=== PATIENT | female | born 1960 | race Two or more races ===

== ENCOUNTER 2022-04-21 13:30 | Inpatient (IN) | payer MEDICARE ==
[~2022-04-21] VITALS: Ht 162.6 cm; Wt 71.6 kg
[2022-04-21] MEDS ORDERED: ALTEPLASE (RECOMBINANT) 100 MG ONE (13:38)
[2022-04-21] MEDS ORDERED: PROPOFOL 100 ML IV ONE (13:59)
[2022-04-21] MEDS ORDERED: PROPOFOL 100 ML IV SCH (14:00)
[2022-04-21] MEDS ORDERED: fentaNYL Drip 2500mCg/250mlNS 250 ML IV ONE (14:09)
[2022-04-21] MEDS: fentaNYL Drip 2500mCg/250mlNS 250 ML IV SCH (14:20)
[2022-04-21] MEDS ORDERED: IOHEXOL 350 MG/ML 100ML IJ ONE ×2 (14:47→18:40)
[2022-04-21 14:57] LABS: Basophils # (auto) 0.1 10 ^3/uL (0-0.2); Hemoglobin 13.1 g/dL (12.2-16.2); Neutrophils # (auto) 7.3 10 ^3/uL (1.6-8.6); Nucleated Red Blood Cells % 0.1 %
[2022-04-21 15:00] LABS: Basophils % (auto) 0.5 % (0.0-2.0); Eosinophils # (auto) 0.1 10 ^3/uL (0-0.8); Eosinophils % (auto) 0.8 % (0.0-7.0); Hematocrit 42.2 % (36.0-46.0); Lymphocytes # (auto) 7.2 10 ^3/uL (0.4-5.4); Lymphocytes % (auto) 46.1 % (10.0-50.0); Mean Corpuscular Volume 87.2 fL (80.0-100.0); Monocytes # (auto) 0.9 10 ^3/uL (0-1.3); Monocytes % (auto) 5.6 % (0.0-12.0); Red Blood Cells 4.84 10^6/uL (4.0-5.20); Red Cell Distribution Width 14.3 % (11.8-14.3); White Blood Cell 15.6 10^3/uL (4.4-10.8)
[2022-04-21 15:07] LABS: Lactic Acid w/Reflex 5.3 mmol/L (0.4-2.0)
[2022-04-21] MEDS ORDERED: SODIUM CHLORIDE 0.9% 250 ML IV ONE (15:40)
[2022-04-21] MEDS ORDERED: NOREPINEPHRINE 8 MG/250ML KIT 250 ML IV ONE (15:55)
[2022-04-21] MEDS: NOREPINEPHRINE 8 MG/250ML KIT 250 ML IV SCH (15:55)
[2022-04-21 16:28] LABS: BUN/Creatinine Ratio 29.2; Bilirubin, Total 0.3 mg/dL (0.2-1.0); Total Protein 4.7 g/dL (6.4-8.2)
[2022-04-21 16:48] LABS: Magnesium 2.8 mg/dL (1.6-2.6); Potassium 4.2 mmol/L (3.5-5.1)
[2022-04-21 17:01] LABS: INR 1.13 (0.9-1.15)
[2022-04-21 17:01] LABS: Calcium 9.7 mg/dL (8.5-10.1)
[2022-04-21 17:22] LABS: Urine WBC None Seen /hpf (0 - 5)
[2022-04-21 17:59] LABS: Urine Amorphous Crystal FEW /hpf (None Seen); Urine Bacteria NONE SEEN /hpf (None Seen); Urine Blood 2+ /uL (Negative); Urine Hyaline Cast MOD /lpf (0 - 2); Urine Mucus FEW (None Seen); Urine Specific Gravity 1.012 (1.001-1.035)
[2022-04-21 18:31] VITALS: BP 180/80
[2022-04-21 19:23] VITALS: BP 180/80
[2022-04-21] MEDS ORDERED: DEXTROSE (50%) 50ML SYRG IV PRN (21:00)
[2022-04-21] MEDS ORDERED: NITROGLYCERIN 0.4 MG SL TAB SL PRN (21:00)
[2022-04-21] MEDS ORDERED: ACETAMINOPHEN 325 MG RECT SUPP PR PRN (21:00)
[2022-04-21] MEDS ORDERED: VANCOMYCIN PER PHARMACY 0 MG IV SCH (21:00)
[2022-04-21] MEDS ORDERED: ONDANSETRON HCL 4 MG/2 ML VIAL IV PRN (21:00)
[2022-04-21] MEDS ORDERED: VANCOMYCIN 1GM/250ML 250 ML IV ONE (21:30)
[2022-04-21 21:48] VITALS: BP 120/60
[2022-04-21] MEDS: ENOXAPARIN SOD 40 MG/0.4 ML SYRINGE SC SCH (22:13)
[2022-04-21] MEDS: SODIUM CHLORIDE 0.9% 1,000 ML IV SCH (22:50)
[2022-04-21 23:30] VITALS: BP 178/93
[2022-04-21] MEDS: InsuLIN REG 1unit/0.01ml Soln (100units/ml) SC SCH (23:52)
[2022-04-22] VITALS (104 sets, daily range): BP systolic 53–184; BP diastolic 23–110
[2022-04-22] MEDS: ACCU-CHEK COMFORT CURVE STRIP VI SCH ×4 (00:02→17:56)
[2022-04-22] MEDS: PIPERACILLIN-TAZOB 3.375GM 100 ML IV SCH ×4 (00:19→17:56)
[2022-04-22 03:56] LABS: Albumin 2.8 g/dL (3.4-5.0); BUN/Creatinine Ratio 28.9; Calcium 9.5 mg/dL (8.5-10.1); Magnesium 2.4 mg/dL (1.6-2.6); Potassium 4.7 mmol/L (3.5-5.1)
[2022-04-22 03:59] LABS: Bilirubin, Total 0.6 mg/dL (0.2-1.0)
[2022-04-22 04:19] LABS: Basophils # (auto) 0.1 10 ^3/uL (0-0.2); Basophils % (auto) 0.6 % (0.0-2.0); Eosinophils # (auto) 0 10 ^3/uL (0-0.8); Eosinophils % (auto) 0.1 % (0.0-7.0); Hematocrit 40.8 % (36.0-46.0); Hemoglobin 13.4 g/dL (12.2-16.2); Lymphocytes # (auto) 2.8 10 ^3/uL (0.4-5.4); Lymphocytes % (auto) 12.8 % (10.0-50.0); Mean Corpuscular Hemoglobin 28.3 pg (28.0-32.0); Mean Corpuscular Hgb Conc. 32.9 g/dL (32.0-36.0); Mean Corpuscular Volume 85.9 fL (80.0-100.0); Monocytes # (auto) 1.6 10 ^3/uL (0-1.3); Monocytes % (auto) 7.5 % (0.0-12.0); Neutrophils # (auto) 17.1 10 ^3/uL (1.6-8.6); Nucleated Red Blood Cells % 0.1 %; Red Blood Cells 4.74 10^6/uL (4.0-5.20); Red Cell Distribution Width 14.3 % (11.8-14.3); White Blood Cell 21.7 10^3/uL (4.4-10.8)
[2022-04-22] MEDS: PROPOFOL 100 ML IV SCH ×2 (05:00→14:28)
[2022-04-22] MEDS: fentaNYL Drip 2500mCg/250mlNS 250 ML IV SCH ×2 (05:01→22:43)
[2022-04-22] MEDS: InsuLIN REG 1unit/0.01ml Soln (100units/ml) SC SCH ×3 (05:51→17:56)
[2022-04-22] MEDS: VANCOMYCIN 1GM/250ML 250 ML IV SCH ×2 (09:18→09:20)
[2022-04-22] MEDS: PANTOPRAZOLE 40 MG/10 ML VIAL INJ IV SCH (10:27)
[2022-04-22] MEDS: ENOXAPARIN SOD 40 MG/0.4 ML SYRINGE SC SCH (10:28)
[2022-04-22] MEDS: SODIUM CHLORIDE 0.9% 1,000 ML IV SCH (10:35)
[2022-04-22] MEDS: NOREPINEPHRINE 8 MG/250ML KIT 250 ML IV SCH (16:00)
[2022-04-22] MEDS ORDERED: Glucerna 1.2 Cal 1Liter BOTTLE GT SCH (16:15)
[2022-04-22] MEDS ORDERED: NOREPINEPHRINE 8 MG/250ML KIT 250 ML IV ONE (22:40)
[2022-04-23] VITALS (85 sets, daily range): BP systolic 107–169; BP diastolic 55–93
[2022-04-23] MEDS: PIPERACILLIN-TAZOB 3.375GM 100 ML IV SCH ×4 (00:54→17:37)
[2022-04-23 03:03] LABS: Basophils # (auto) 0.1 10 ^3/uL (0-0.2); Basophils % (auto) 0.5 % (0.0-2.0); Eosinophils # (auto) 0.4 10 ^3/uL (0-0.8); Eosinophils % (auto) 1.6 % (0.0-7.0); Hematocrit 43.4 % (36.0-46.0); Hemoglobin 14.1 g/dL (12.2-16.2); Lymphocytes # (auto) 2.7 10 ^3/uL (0.4-5.4); Lymphocytes % (auto) 12.3 % (10.0-50.0); Mean Corpuscular Hemoglobin 27.5 pg (28.0-32.0); Mean Corpuscular Hgb Conc. 32.4 g/dL (32.0-36.0); Mean Corpuscular Volume 84.9 fL (80.0-100.0); Monocytes # (auto) 2.7 10 ^3/uL (0-1.3); Monocytes % (auto) 12.3 % (0.0-12.0); Neutrophils # (auto) 16.2 10 ^3/uL (1.6-8.6); Neutrophils % (auto) 73.3 % (37.0-80.0); Nucleated Red Blood Cells % 0.1 %; Red Blood Cells 5.12 10^6/uL (4.0-5.20); Red Cell Distribution Width 14.5 % (11.8-14.3); White Blood Cell 22.1 10^3/uL (4.4-10.8)
[2022-04-23] MEDS: NOREPINEPHRINE 8 MG/250ML KIT 250 ML IV SCH (03:53)
[2022-04-23 05:09] LABS: Albumin 2.4 g/dL (3.4-5.0); BUN/Creatinine Ratio 29.1; Calcium 9.3 mg/dL (8.5-10.1)
[2022-04-23 05:11] LABS: Bilirubin, Total 3.6 mg/dL (0.2-1.0); Total Protein 5.8 g/dL (6.4-8.2)
[2022-04-23] MEDS: ACCU-CHEK COMFORT CURVE STRIP VI SCH ×4 (06:00→17:38)
[2022-04-23] MEDS: InsuLIN REG 1unit/0.01ml Soln (100units/ml) SC SCH ×4 (06:00→18:00)
[2022-04-23] MEDS: PROPOFOL 100 ML IV SCH (06:04)
[2022-04-23] MEDS ORDERED: RILU50TA2 OR (09:05)
[2022-04-23] MEDS ORDERED: DEXT20CA PO (09:05)
[2022-04-23] MEDS: SERTRALINE HCL 50 MG TAB PO SCH (10:06)
[2022-04-23] MEDS: PANTOPRAZOLE 40 MG/10 ML VIAL INJ IV SCH (10:06)
[2022-04-23] MEDS: NUEDEXTA 20-10 MG CAPSULE PO SCH ×2 (10:06→22:00)
[2022-04-23] MEDS: RILUZOLE 50 MG PO SCH (10:06)
[2022-04-23] MEDS: ENOXAPARIN SOD 40 MG/0.4 ML SYRINGE SC SCH (10:26)
[2022-04-23] MEDS ORDERED: LORazepam 2MG/ML-1ML VIAL IV PRN (14:15)
[2022-04-23] MEDS: FREE WATER GT SCH (17:37)
[2022-04-24] VITALS (36 sets, daily range): BP systolic 115–155; BP diastolic 66–86
[2022-04-24] MEDS: RILUZOLE 50 MG PO SCH ×3 (00:16→21:38)
[2022-04-24] MEDS: FREE WATER GT SCH ×5 (00:16→23:51)
[2022-04-24] MEDS: ACCU-CHEK COMFORT CURVE STRIP VI SCH ×5 (00:16→23:52)
[2022-04-24] MEDS: PIPERACILLIN-TAZOB 3.375GM 100 ML IV SCH ×5 (00:19→23:51)
[2022-04-24 03:26] LABS: Basophils # (auto) 0.1 10 ^3/uL (0-0.2); Basophils % (auto) 0.4 % (0.0-2.0); Eosinophils # (auto) 0.1 10 ^3/uL (0-0.8); Eosinophils % (auto) 0.5 % (0.0-7.0); Hemoglobin 12.2 g/dL (12.2-16.2); Lymphocytes # (auto) 1.6 10 ^3/uL (0.4-5.4); Lymphocytes % (auto) 13.1 % (10.0-50.0); Mean Corpuscular Hgb Conc. 32.1 g/dL (32.0-36.0); Monocytes # (auto) 1.2 10 ^3/uL (0-1.3); Monocytes % (auto) 9.8 % (0.0-12.0); Neutrophils # (auto) 9.3 10 ^3/uL (1.6-8.6); Neutrophils % (auto) 76.2 % (37.0-80.0); Nucleated Red Blood Cells % 0.1 %; Red Blood Cells 4.37 10^6/uL (4.0-5.20); White Blood Cell 12.2 10^3/uL (4.4-10.8)
[2022-04-24 03:41] LABS: Albumin 2.2 g/dL (3.4-5.0); BUN/Creatinine Ratio 43.3; Calcium 8.5 mg/dL (8.5-10.1); Potassium 3.5 mmol/L (3.5-5.1)
[2022-04-24 03:44] LABS: Bilirubin, Total 2.7 mg/dL (0.2-1.0); Total Protein 5.7 g/dL (6.4-8.2)
[2022-04-24] MEDS: InsuLIN REG 1unit/0.01ml Soln (100units/ml) SC SCH ×5 (06:00→23:54)
[2022-04-24] MEDS: NUEDEXTA 20-10 MG CAPSULE PO SCH ×2 (09:40→21:38)
[2022-04-24] MEDS: ENOXAPARIN SOD 40 MG/0.4 ML SYRINGE SC SCH (09:40)
[2022-04-24] MEDS: PANTOPRAZOLE 40 MG/10 ML VIAL INJ IV SCH (09:40)
[2022-04-24] MEDS: SERTRALINE HCL 50 MG TAB PO SCH (09:41)
[2022-04-24] MEDS: fentaNYL Drip 2500mCg/250mlNS 250 ML IV SCH (15:45)
[2022-04-24] MEDS: NOREPINEPHRINE 8 MG/250ML KIT 250 ML IV SCH (16:00)
[2022-04-24] MEDS: PROPOFOL 100 ML IV SCH (23:19)
[2022-04-25] VITALS (37 sets, daily range): BP systolic 100–166; BP diastolic 65–88
[2022-04-25 03:31] LABS: Basophils # (auto) 0.1 10 ^3/uL (0-0.2); Basophils % (auto) 0.5 % (0.0-2.0); Eosinophils # (auto) 0.1 10 ^3/uL (0-0.8); Eosinophils % (auto) 0.9 % (0.0-7.0); Hematocrit 35.7 % (36.0-46.0); Hemoglobin 11.6 g/dL (12.2-16.2); Lymphocytes # (auto) 1.1 10 ^3/uL (0.4-5.4); Lymphocytes % (auto) 10.6 % (10.0-50.0); Mean Corpuscular Hemoglobin 27.5 pg (28.0-32.0); Mean Corpuscular Hgb Conc. 32.4 g/dL (32.0-36.0); Mean Corpuscular Volume 84.9 fL (80.0-100.0); Monocytes % (auto) 9.4 % (0.0-12.0); Neutrophils # (auto) 8.4 10 ^3/uL (1.6-8.6); Neutrophils % (auto) 78.6 % (37.0-80.0); Nucleated Red Blood Cells % 0.1 %; Red Cell Distribution Width 14.4 % (11.8-14.3); White Blood Cell 10.7 10^3/uL (4.4-10.8)
[2022-04-25 03:48] LABS: Albumin 2.1 g/dL (3.4-5.0); BUN/Creatinine Ratio 55.6; Bilirubin, Total 2.1 mg/dL (0.2-1.0); Calcium 8.5 mg/dL (8.5-10.1); Total Protein 5.7 g/dL (6.4-8.2)
[2022-04-25] MEDS: ACCU-CHEK COMFORT CURVE STRIP VI SCH ×3 (05:43→18:00)
[2022-04-25] MEDS: PIPERACILLIN-TAZOB 3.375GM 100 ML IV SCH ×3 (05:43→17:56)
[2022-04-25] MEDS: FREE WATER GT SCH (05:43)
[2022-04-25] MEDS: InsuLIN REG 1unit/0.01ml Soln (100units/ml) SC SCH ×3 (05:45→18:00)
[2022-04-25] MEDS ORDERED: POTASSIUM EFFERVESENT TAB 25 MEQ GT ONE (08:15)
[2022-04-25] MEDS: SERTRALINE HCL 50 MG TAB PO SCH (10:07)
[2022-04-25] MEDS: PANTOPRAZOLE 40 MG/10 ML VIAL INJ IV SCH (10:07)
[2022-04-25] MEDS: ENOXAPARIN SOD 40 MG/0.4 ML SYRINGE SC SCH (10:07)
[2022-04-25] MEDS: NUEDEXTA 20-10 MG CAPSULE PO SCH ×2 (10:08→22:05)
[2022-04-25] MEDS: NOREPINEPHRINE 8 MG/250ML KIT 250 ML IV SCH (10:09)
[2022-04-25] MEDS: RILUZOLE 50 MG PO SCH ×2 (10:09→22:05)
[2022-04-25] MEDS: fentaNYL Drip 2500mCg/250mlNS 250 ML IV SCH (10:09)
[2022-04-25] MEDS: PROPOFOL 100 ML IV SCH (22:35)
[2022-04-26] VITALS (56 sets, daily range): BP systolic 92–145; BP diastolic 50–91
[2022-04-26] MEDS: ACCU-CHEK COMFORT CURVE STRIP VI SCH ×5 (00:16→23:38)
[2022-04-26] MEDS: PIPERACILLIN-TAZOB 3.375GM 100 ML IV SCH ×5 (00:16→23:53)
[2022-04-26] MEDS: InsuLIN REG 1unit/0.01ml Soln (100units/ml) SC SCH ×5 (00:18→23:53)
[2022-04-26 03:43] LABS: Basophils # (auto) 0 10 ^3/uL (0-0.2); Basophils % (auto) 0.3 % (0.0-2.0); Eosinophils # (auto) 0.1 10 ^3/uL (0-0.8); Eosinophils % (auto) 0.9 % (0.0-7.0); Hemoglobin 11.7 g/dL (12.2-16.2); Lymphocytes # (auto) 1.5 10 ^3/uL (0.4-5.4); Lymphocytes % (auto) 15.4 % (10.0-50.0); Mean Corpuscular Hemoglobin 27.6 pg (28.0-32.0); Mean Corpuscular Hgb Conc. 32.4 g/dL (32.0-36.0); Mean Corpuscular Volume 85.2 fL (80.0-100.0); Monocytes % (auto) 9.7 % (0.0-12.0); Neutrophils # (auto) 7.2 10 ^3/uL (1.6-8.6); Neutrophils % (auto) 73.7 % (37.0-80.0); Nucleated Red Blood Cells % 0.1 %; Red Blood Cells 4.22 10^6/uL (4.0-5.20); Red Cell Distribution Width 14.3 % (11.8-14.3); White Blood Cell 9.8 10^3/uL (4.4-10.8)
[2022-04-26 04:03] LABS: Potassium 3.3 mmol/L (3.5-5.1)
[2022-04-26 04:10] LABS: Albumin 2.1 g/dL (3.4-5.0); BUN/Creatinine Ratio 27.5; Bilirubin, Total 1.5 mg/dL (0.2-1.0); Calcium 8.5 mg/dL (8.5-10.1); Total Protein 5.7 g/dL (6.4-8.2)
[2022-04-26] MEDS: ENOXAPARIN SOD 40 MG/0.4 ML SYRINGE SC SCH (09:16)
[2022-04-26] MEDS: PANTOPRAZOLE 40 MG/10 ML VIAL INJ IV SCH (09:16)
[2022-04-26] MEDS: SERTRALINE HCL 50 MG TAB PO SCH (09:17)
[2022-04-26] MEDS: RILUZOLE 50 MG PO SCH ×2 (09:17→21:40)
[2022-04-26] MEDS: NUEDEXTA 20-10 MG CAPSULE PO SCH ×2 (09:18→21:40)
[2022-04-26] MEDS ORDERED: ALBUTEROL SULF 2.5 MG/0.5ML(0.5%) NEB SOLN ONE (10:58)
[2022-04-26] MEDS ORDERED: IPRATROPIUM BROM 0.5 MG/2.5ML INH SOL ONE (10:59)
[2022-04-26] MEDS: ALBUTEROL SULF 2.5 MG/0.5ML(0.5%) NEB SOLN NEB SCH ×3 (11:09→18:40)
[2022-04-26] MEDS: IPRATROPIUM BROM 0.5 MG/2.5ML INH SOL NEB SCH ×3 (11:10→18:40)
[2022-04-26] MEDS ORDERED: GLYCOPYRROLATE 0.2 MG/ML 1ML VIAL ONE (14:25)
[2022-04-26] MEDS ORDERED: SODIUM CHLORIDE LOCK 0 ML ONE (14:25)
[2022-04-26] MEDS ORDERED: EPINEPHrine HCL 1 MG/1 ML AMP ONE (14:25)
[2022-04-26] MEDS ORDERED: LIDOCAINE HCL 2% TOP JELLY 5ML TOP ONE (14:26)
[2022-04-26] MEDS ORDERED: fentaNYL CITRATE 100 MCG/2 ML VL ONE (14:26)
[2022-04-26] MEDS ORDERED: MIDAZOLAM HCL 5 MG/ML-1ML VIAL ONE (14:26)
[2022-04-26] MEDS ORDERED: LIDOCAINE W/ EPINEPHRINE 2% INJ 20ML VIAL ONE (14:26)
[2022-04-26] MEDS ORDERED: NALOXONE HCL 0.4 MG/ML VIAL ONE (14:27)
[2022-04-26] MEDS ORDERED: LIDOCAINE 2% (LOCAL ANESTH.) PF 5ml SDV ONE (14:28)
[2022-04-26] MEDS ORDERED: FLUMAZENIL 0.1 MG/ML INJ 10ML MDV IV ONE (14:28)
[2022-04-26] MEDS ORDERED: EPINEPHrine HCL 1 MG/10 ML SYRG ONE (14:28)
[2022-04-26] MEDS: fentaNYL Drip 2500mCg/250mlNS 250 ML IV SCH (15:45)
[2022-04-26] MEDS: SOD CHL 0.9%/ KCL 20MEQ 1,000 ML IV SCH (15:53)
[2022-04-26] MEDS: NOREPINEPHRINE 8 MG/250ML KIT 250 ML IV SCH (16:00)
[2022-04-26] MEDS: PROPOFOL 100 ML IV SCH (22:35)
[2022-04-27] VITALS (104 sets, daily range): BP systolic 91–202; BP diastolic 51–100
[2022-04-27] MEDS: IPRATROPIUM BROM 0.5 MG/2.5ML INH SOL NEB SCH ×4 (00:28→18:14)
[2022-04-27] MEDS: ALBUTEROL SULF 2.5 MG/0.5ML(0.5%) NEB SOLN NEB SCH ×4 (00:28→18:14)
[2022-04-27 04:30] LABS: Basophils # (auto) 0 10 ^3/uL (0-0.2); Basophils % (auto) 0.5 % (0.0-2.0); Eosinophils # (auto) 0.1 10 ^3/uL (0-0.8); Eosinophils % (auto) 0.7 % (0.0-7.0); Hematocrit 30.8 % (36.0-46.0); Lymphocytes # (auto) 1.7 10 ^3/uL (0.4-5.4); Lymphocytes % (auto) 20.9 % (10.0-50.0); Mean Corpuscular Hemoglobin 27.9 pg (28.0-32.0); Mean Corpuscular Hgb Conc. 32.4 g/dL (32.0-36.0); Mean Corpuscular Volume 86.2 fL (80.0-100.0); Monocytes # (auto) 0.7 10 ^3/uL (0-1.3); Monocytes % (auto) 7.9 % (0.0-12.0); Neutrophils # (auto) 5.9 10 ^3/uL (1.6-8.6); Red Blood Cells 3.58 10^6/uL (4.0-5.20); Red Cell Distribution Width 14.2 % (11.8-14.3); White Blood Cell 8.4 10^3/uL (4.4-10.8)
[2022-04-27] MEDS: SOD CHL 0.9%/ KCL 20MEQ 1,000 ML IV SCH (04:32)
[2022-04-27 04:48] LABS: BUN/Creatinine Ratio 30.6; Calcium 8.1 mg/dL (8.5-10.1); Potassium 3.1 mmol/L (3.5-5.1)
[2022-04-27] MEDS: InsuLIN REG 1unit/0.01ml Soln (100units/ml) SC SCH ×4 (06:00→23:48)
[2022-04-27] MEDS: PIPERACILLIN-TAZOB 3.375GM 100 ML IV SCH ×4 (06:03→23:51)
[2022-04-27] MEDS: ACCU-CHEK COMFORT CURVE STRIP VI SCH ×4 (06:04→23:48)
[2022-04-27] MEDS: PANTOPRAZOLE 40 MG/10 ML VIAL INJ IV SCH (09:54)
[2022-04-27] MEDS: ENOXAPARIN SOD 40 MG/0.4 ML SYRINGE SC SCH (09:54)
[2022-04-27] MEDS: SERTRALINE HCL 50 MG TAB PO SCH (09:55)
[2022-04-27] MEDS: RILUZOLE 50 MG PO SCH ×2 (09:57→21:53)
[2022-04-27] MEDS: NUEDEXTA 20-10 MG CAPSULE PO SCH ×2 (09:57→21:53)
[2022-04-27] MEDS ORDERED: FUROSEMIDE 20 MG/2 ML VIAL IV ONE ×2 (11:00→15:00)
[2022-04-27] MEDS ORDERED: POTASSIUM EFFERVESENT TAB 25 MEQ PO ONE (11:00)
[2022-04-27] MEDS ORDERED: POTASSIUM CHL 20MEQ/100ML 100 ML IV ONE (15:00)
[2022-04-27] MEDS: fentaNYL Drip 2500mCg/250mlNS 250 ML IV SCH (15:45)
[2022-04-27] MEDS: NOREPINEPHRINE 8 MG/250ML KIT 250 ML IV SCH (16:00)
[2022-04-27] MEDS ORDERED: ACETYLCYSTEINE 10 %(100MG/ML) SOL 4ML NEB SCH (18:00)
[2022-04-27] MEDS: ACETYLCYSTEINE 10 %(100MG/ML) SOL 4ML NEB SCH (18:13)
[2022-04-27] MEDS: Vital AF 1.2 Cal 1 liter bottle GT SCH (23:49)
[2022-04-28] VITALS (104 sets, daily range): BP systolic 107–150; BP diastolic 46–80
[2022-04-28] MEDS: ACETYLCYSTEINE 10 %(100MG/ML) SOL 4ML NEB SCH ×3 (00:08→18:55)
[2022-04-28] MEDS: ALBUTEROL SULF 2.5 MG/0.5ML(0.5%) NEB SOLN NEB SCH ×4 (00:08→18:54)
[2022-04-28] MEDS: IPRATROPIUM BROM 0.5 MG/2.5ML INH SOL NEB SCH ×4 (00:08→18:55)
[2022-04-28] MEDS ORDERED: DexmedeTOMIDine 4 ML IV ONE (04:08)
[2022-04-28 04:14] LABS: Basophils # (auto) 0 10 ^3/uL (0-0.2); Basophils % (auto) 0.5 % (0.0-2.0); Eosinophils # (auto) 0.2 10 ^3/uL (0-0.8); Eosinophils % (auto) 2.2 % (0.0-7.0); Hematocrit 29.7 % (36.0-46.0); Lymphocytes # (auto) 2.1 10 ^3/uL (0.4-5.4); Mean Corpuscular Hemoglobin 28.2 pg (28.0-32.0); Mean Corpuscular Hgb Conc. 33.6 g/dL (32.0-36.0); Monocytes # (auto) 0.6 10 ^3/uL (0-1.3); Monocytes % (auto) 7.5 % (0.0-12.0); Neutrophils # (auto) 5.1 10 ^3/uL (1.6-8.6); Neutrophils % (auto) 63.8 % (37.0-80.0); Nucleated Red Blood Cells % 0.1 %; Red Blood Cells 3.53 10^6/uL (4.0-5.20); Red Cell Distribution Width 14.1 % (11.8-14.3)
[2022-04-28 04:35] LABS: Potassium 3.3 mmol/L (3.5-5.1)
[2022-04-28 04:39] LABS: BUN/Creatinine Ratio 25.6; Calcium 8.2 mg/dL (8.5-10.1)
[2022-04-28] MEDS: InsuLIN REG 1unit/0.01ml Soln (100units/ml) SC SCH ×3 (06:00→18:30)
[2022-04-28] MEDS: PIPERACILLIN-TAZOB 3.375GM 100 ML IV SCH ×3 (06:20→18:27)
[2022-04-28] MEDS: ACCU-CHEK COMFORT CURVE STRIP VI SCH ×3 (06:21→18:27)
[2022-04-28] MEDS: PROPOFOL 100 ML IV SCH (08:07)
[2022-04-28] MEDS: SERTRALINE HCL 50 MG TAB PO SCH (11:11)
[2022-04-28] MEDS: ENOXAPARIN SOD 40 MG/0.4 ML SYRINGE SC SCH (11:11)
[2022-04-28] MEDS: PANTOPRAZOLE 40 MG/10 ML VIAL INJ IV SCH (11:11)
[2022-04-28] MEDS: NUEDEXTA 20-10 MG CAPSULE PO SCH ×2 (11:30→22:30)
[2022-04-28] MEDS: RILUZOLE 50 MG PO SCH ×2 (11:30→23:00)
[2022-04-28] MEDS ORDERED: POTASSIUM EFFERVESENT TAB 25 MEQ GT ONE (13:15)
[2022-04-28] MEDS: MORPHINE SULFATE INJ 2 MG/ml SYRG IV PRN ×3 (14:00→22:15)
[2022-04-28] MEDS: fentaNYL Drip 2500mCg/250mlNS 250 ML IV SCH (15:04)
[2022-04-28] MEDS: NOREPINEPHRINE 8 MG/250ML KIT 250 ML IV SCH (15:04)
[2022-04-29] VITALS (95 sets, daily range): BP systolic 109–174; BP diastolic 45–69
[2022-04-29] MEDS: PIPERACILLIN-TAZOB 3.375GM 100 ML IV SCH ×4 (00:05→18:45)
[2022-04-29] MEDS: ACETYLCYSTEINE 10 %(100MG/ML) SOL 4ML NEB SCH ×4 (00:09→18:26)
[2022-04-29] MEDS: IPRATROPIUM BROM 0.5 MG/2.5ML INH SOL NEB SCH ×4 (00:09→18:26)
[2022-04-29] MEDS: ALBUTEROL SULF 2.5 MG/0.5ML(0.5%) NEB SOLN NEB SCH ×4 (00:09→18:26)
[2022-04-29] MEDS: ACCU-CHEK COMFORT CURVE STRIP VI SCH ×4 (00:12→18:55)
[2022-04-29] MEDS: MORPHINE SULFATE INJ 2 MG/ml SYRG IV PRN ×3 (02:42→20:25)
[2022-04-29 04:22] LABS: Calcium 8.4 mg/dL (8.5-10.1); Potassium 3.6 mmol/L (3.5-5.1)
[2022-04-29 04:26] LABS: BUN/Creatinine Ratio 29.4; Magnesium 1.4 mg/dL (1.6-2.6)
[2022-04-29] MEDS: InsuLIN REG 1unit/0.01ml Soln (100units/ml) SC SCH ×4 (06:00→18:55)
[2022-04-29] MEDS ORDERED: MAGNESIUM SULFATE 1GM/100ML 100 ML IV ONE (09:38)
[2022-04-29] MEDS: MAGNESIUM SULFATE 1GM/100ML 100 ML IV SCH ×2 (09:45→10:45)
[2022-04-29] MEDS: PROPOFOL 100 ML IV SCH ×2 (09:54→22:35)
[2022-04-29] MEDS: SERTRALINE HCL 50 MG TAB PO SCH (10:00)
[2022-04-29] MEDS: NUEDEXTA 20-10 MG CAPSULE PO SCH ×2 (10:00→22:12)
[2022-04-29] MEDS: ENOXAPARIN SOD 40 MG/0.4 ML SYRINGE SC SCH (10:00)
[2022-04-29] MEDS ORDERED: LIDOCAINE 1%-Mpf/Epinephrine 1:200,000 ONE (10:55)
[2022-04-29] MEDS ORDERED: HYDROmorphone HCL 2 MG/ML VL/or syr ONE (12:42)
[2022-04-29] MEDS ORDERED: MIDAZOLAM HCL 2MG/2ML 2ml VIAL (1mg/ml) ONE (12:43)
[2022-04-29] MEDS ORDERED: fentaNYL CITRATE 100 MCG/2 ML VL ONE (12:43)
[2022-04-29] MEDS ORDERED: DexAMETHasone SOD PHOS 10MG/1ML VIAL INJ ONE (13:24)
[2022-04-29] MEDS: PANTOPRAZOLE 40 MG/10 ML VIAL INJ IV SCH (14:55)
[2022-04-29] MEDS: RILUZOLE 50 MG PO SCH ×2 (14:55→22:13)
[2022-04-29] MEDS: NOREPINEPHRINE 8 MG/250ML KIT 250 ML IV SCH (15:33)
[2022-04-29] MEDS: fentaNYL Drip 2500mCg/250mlNS 250 ML IV SCH (15:33)
[2022-04-30] VITALS (98 sets, daily range): BP systolic 96–182; BP diastolic 44–93
[2022-04-30] MEDS: IPRATROPIUM BROM 0.5 MG/2.5ML INH SOL NEB SCH ×4 (00:12→18:18)
[2022-04-30] MEDS: ACETYLCYSTEINE 10 %(100MG/ML) SOL 4ML NEB SCH ×4 (00:12→18:18)
[2022-04-30] MEDS: ALBUTEROL SULF 2.5 MG/0.5ML(0.5%) NEB SOLN NEB SCH ×4 (00:12→18:18)
[2022-04-30] MEDS: PIPERACILLIN-TAZOB 3.375GM 100 ML IV SCH ×3 (00:15→11:42)
[2022-04-30] MEDS: fentaNYL Drip 2500mCg/250mlNS 250 ML IV SCH (00:36)
[2022-04-30 04:01] LABS: Basophils # (auto) 0 10 ^3/uL (0-0.2); Basophils % (auto) 0.2 % (0.0-2.0); Eosinophils # (auto) 0.1 10 ^3/uL (0-0.8); Eosinophils % (auto) 0.7 % (0.0-7.0); Hematocrit 31.5 % (36.0-46.0); Hemoglobin 10.2 g/dL (12.2-16.2); Lymphocytes # (auto) 0.9 10 ^3/uL (0.4-5.4); Lymphocytes % (auto) 9.5 % (10.0-50.0); Mean Corpuscular Hemoglobin 27.9 pg (28.0-32.0); Mean Corpuscular Hgb Conc. 32.5 g/dL (32.0-36.0); Mean Corpuscular Volume 85.8 fL (80.0-100.0); Monocytes # (auto) 0.6 10 ^3/uL (0-1.3); Monocytes % (auto) 5.9 % (0.0-12.0); Neutrophils # (auto) 8.1 10 ^3/uL (1.6-8.6); Neutrophils % (auto) 83.7 % (37.0-80.0); Red Blood Cells 3.67 10^6/uL (4.0-5.20); Red Cell Distribution Width 14.2 % (11.8-14.3); White Blood Cell 9.7 10^3/uL (4.4-10.8)
[2022-04-30 04:23] LABS: BUN/Creatinine Ratio 25.8; Calcium 8.4 mg/dL (8.5-10.1); Potassium 3.7 mmol/L (3.5-5.1)
[2022-04-30] MEDS: ACCU-CHEK COMFORT CURVE STRIP VI SCH ×4 (06:01→18:17)
[2022-04-30] MEDS: InsuLIN REG 1unit/0.01ml Soln (100units/ml) SC SCH ×4 (06:12→18:18)
[2022-04-30] MEDS: ENOXAPARIN SOD 40 MG/0.4 ML SYRINGE SC SCH (09:39)
[2022-04-30] MEDS: SERTRALINE HCL 50 MG TAB PO SCH (09:39)
[2022-04-30] MEDS: PANTOPRAZOLE 40 MG/10 ML VIAL INJ IV SCH (09:39)
[2022-04-30] MEDS: NUEDEXTA 20-10 MG CAPSULE PO SCH ×2 (09:40→22:26)
[2022-04-30] MEDS: RILUZOLE 50 MG PO SCH ×2 (09:40→22:26)
[2022-04-30] MEDS: ALPRAZolam 0.25 MG TAB PO PRN (15:16)
[2022-04-30] MEDS: NOREPINEPHRINE 8 MG/250ML KIT 250 ML IV SCH (16:00)
[2022-04-30] MEDS: levoFLOXacin 500MG 100 ML IV SCH (17:02)
[2022-04-30] MEDS: FREE WATER GT SCH (18:19)
[2022-04-30] MEDS: MORPHINE SULFATE INJ 2 MG/ml SYRG IV PRN (21:40)
[2022-04-30] MEDS ORDERED: ONDANSETRON HCL 4 MG/2 ML VIAL ONE (21:54)
[2022-04-30] MEDS: ONDANSETRON HCL 4 MG/2 ML VIAL IV PRN (23:30)
[2022-05-01] VITALS (104 sets, daily range): BP systolic 101–227; BP diastolic 51–115
[2022-05-01] MEDS: ALBUTEROL SULF 2.5 MG/0.5ML(0.5%) NEB SOLN NEB SCH ×6 (00:18→22:11)
[2022-05-01] MEDS: ACETYLCYSTEINE 10 %(100MG/ML) SOL 4ML NEB SCH ×5 (00:18→22:11)
[2022-05-01] MEDS: IPRATROPIUM BROM 0.5 MG/2.5ML INH SOL NEB SCH ×6 (00:18→22:11)
[2022-05-01] MEDS ORDERED: PROMETHAZINE HCL 25 MG/ML 1ML ONE (00:53)
[2022-05-01] MEDS: ALPRAZolam 0.25 MG TAB PO PRN ×3 (01:09→23:00)
[2022-05-01 04:23] LABS: Basophils # (auto) 0.1 10 ^3/uL (0-0.2); Basophils % (auto) 0.4 % (0.0-2.0); Eosinophils # (auto) 0.1 10 ^3/uL (0-0.8); Eosinophils % (auto) 0.5 % (0.0-7.0); Hemoglobin 10.9 g/dL (12.2-16.2); Lymphocytes # (auto) 1.3 10 ^3/uL (0.4-5.4); Lymphocytes % (auto) 8.4 % (10.0-50.0); Mean Corpuscular Hemoglobin 28.2 pg (28.0-32.0); Mean Corpuscular Hgb Conc. 33.1 g/dL (32.0-36.0); Mean Corpuscular Volume 85.1 fL (80.0-100.0); Monocytes # (auto) 0.7 10 ^3/uL (0-1.3); Monocytes % (auto) 4.7 % (0.0-12.0); Neutrophils # (auto) 13.3 10 ^3/uL (1.6-8.6); Red Blood Cells 3.88 10^6/uL (4.0-5.20); Red Cell Distribution Width 14.6 % (11.8-14.3); White Blood Cell 15.5 10^3/uL (4.4-10.8)
[2022-05-01] MEDS: ONDANSETRON HCL 4 MG/2 ML VIAL IV PRN (04:25)
[2022-05-01 04:34] LABS: Albumin 2.3 g/dL (3.4-5.0); BUN/Creatinine Ratio 17.1; Calcium 8.4 mg/dL (8.5-10.1); Potassium 3.4 mmol/L (3.5-5.1)
[2022-05-01 04:36] LABS: Total Protein 6.1 g/dL (6.4-8.2)
[2022-05-01] MEDS: InsuLIN REG 1unit/0.01ml Soln (100units/ml) SC SCH ×4 (06:00→17:30)
[2022-05-01] MEDS: FREE WATER GT SCH ×5 (06:00→17:31)
[2022-05-01] MEDS: ACCU-CHEK COMFORT CURVE STRIP VI SCH ×4 (06:10→17:31)
[2022-05-01] MEDS: LORazepam 2MG/ML-1ML VIAL IV PRN (06:37)
[2022-05-01] MEDS: PROMETHAZINE HCL 25 MG/ML 1ML IV PRN (06:38)
[2022-05-01] MEDS: SERTRALINE HCL 50 MG TAB PO SCH (10:05)
[2022-05-01] MEDS: levoFLOXacin 500MG 100 ML IV SCH (10:05)
[2022-05-01] MEDS: ENOXAPARIN SOD 40 MG/0.4 ML SYRINGE SC SCH (10:05)
[2022-05-01] MEDS: PANTOPRAZOLE 40 MG/10 ML VIAL INJ IV SCH (10:05)
[2022-05-01] MEDS: NUEDEXTA 20-10 MG CAPSULE PO SCH ×2 (10:06→22:28)
[2022-05-01] MEDS: RILUZOLE 50 MG PO SCH ×2 (10:06→22:28)
[2022-05-01] MEDS: fentaNYL Drip 2500mCg/250mlNS 250 ML IV SCH (11:52)
[2022-05-01] MEDS: NOREPINEPHRINE 8 MG/250ML KIT 250 ML IV SCH (11:52)
[2022-05-01] MEDS: POTASSIUM CHL 20MEQ/100ML 100 ML IV SCH ×2 (13:14→15:00)
[2022-05-01] MEDS: PIPERACILLIN-TAZOB 3.375GM 100 ML IV SCH ×2 (13:46→22:28)
[2022-05-01] MEDS ORDERED: ALBUTEROL SULF 2.5 MG/0.5ML(0.5%) NEB SOLN NEB SCH (14:00)
[2022-05-01] MEDS ORDERED: IPRATROPIUM BROM 0.5 MG/2.5ML INH SOL NEB SCH (14:00)
[2022-05-02] VITALS (103 sets, daily range): BP systolic 92–218; BP diastolic 43–96
[2022-05-02] MEDS: FREE WATER GT SCH ×5 (00:10→23:41)
[2022-05-02] MEDS: ACCU-CHEK COMFORT CURVE STRIP VI SCH ×5 (00:10→23:41)
[2022-05-02] MEDS: PROMETHAZINE HCL 25 MG/ML 1ML IV PRN (00:17)
[2022-05-02] MEDS: fentaNYL Drip 2500mCg/250mlNS 250 ML IV SCH (00:34)
[2022-05-02] MEDS: ALBUTEROL SULF 2.5 MG/0.5ML(0.5%) NEB SOLN NEB SCH ×7 (02:16→23:55)
[2022-05-02] MEDS: IPRATROPIUM BROM 0.5 MG/2.5ML INH SOL NEB SCH ×6 (02:16→21:36)
[2022-05-02 04:21] LABS: Basophils # (auto) 0.1 10 ^3/uL (0-0.2); Basophils % (auto) 0.5 % (0.0-2.0); Eosinophils # (auto) 0.2 10 ^3/uL (0-0.8); Eosinophils % (auto) 1.7 % (0.0-7.0); Hematocrit 32.9 % (36.0-46.0); Hemoglobin 11.1 g/dL (12.2-16.2); Lymphocytes # (auto) 2.1 10 ^3/uL (0.4-5.4); Lymphocytes % (auto) 19.9 % (10.0-50.0); Mean Corpuscular Hgb Conc. 33.6 g/dL (32.0-36.0); Mean Corpuscular Volume 86.2 fL (80.0-100.0); Monocytes # (auto) 0.8 10 ^3/uL (0-1.3); Monocytes % (auto) 7.9 % (0.0-12.0); Neutrophils # (auto) 7.2 10 ^3/uL (1.6-8.6); Nucleated Red Blood Cells % 0.1 %; Red Blood Cells 3.82 10^6/uL (4.0-5.20); Red Cell Distribution Width 14.1 % (11.8-14.3); White Blood Cell 10.3 10^3/uL (4.4-10.8)
[2022-05-02 04:30] LABS: BUN/Creatinine Ratio 11.4; Calcium 8.5 mg/dL (8.5-10.1); Potassium 3.6 mmol/L (3.5-5.1)
[2022-05-02] MEDS: PIPERACILLIN-TAZOB 3.375GM 100 ML IV SCH ×3 (05:41→21:51)
[2022-05-02] MEDS: InsuLIN REG 1unit/0.01ml Soln (100units/ml) SC SCH ×5 (05:42→23:41)
[2022-05-02] MEDS: ACETYLCYSTEINE 10 %(100MG/ML) SOL 4ML NEB SCH ×4 (06:00→23:55)
[2022-05-02] MEDS: ENOXAPARIN SOD 40 MG/0.4 ML SYRINGE SC SCH (10:17)
[2022-05-02] MEDS: PANTOPRAZOLE 40 MG/10 ML VIAL INJ IV SCH (10:17)
[2022-05-02] MEDS: NUEDEXTA 20-10 MG CAPSULE PO SCH ×2 (10:18→21:51)
[2022-05-02] MEDS: SERTRALINE HCL 50 MG TAB PO SCH (10:18)
[2022-05-02] MEDS: RILUZOLE 50 MG PO SCH ×2 (10:18→21:51)
[2022-05-02] MEDS ORDERED: ALBUTEROL SULF 2.5 MG/0.5ML(0.5%) NEB SOLN NEB SCH (14:00)
[2022-05-02] MEDS ORDERED: IPRATROPIUM BROM 0.5 MG/2.5ML INH SOL NEB SCH (14:00)
[2022-05-02] MEDS: NOREPINEPHRINE 8 MG/250ML KIT 250 ML IV SCH (16:00)
[2022-05-02] MEDS ORDERED: fentaNYL CITRATE 100 MCG/2 ML VL IV PRN (17:15)
[2022-05-03] VITALS (63 sets, daily range): BP systolic 87–190; BP diastolic 36–118
[2022-05-03] MEDS: ALPRAZolam 0.25 MG TAB PO PRN ×2 (00:03→09:20)
[2022-05-03] MEDS: IPRATROPIUM BROM 0.5 MG/2.5ML INH SOL NEB SCH ×6 (02:06→21:59)
[2022-05-03] MEDS: ALBUTEROL SULF 2.5 MG/0.5ML(0.5%) NEB SOLN NEB SCH ×6 (02:06→21:59)
[2022-05-03] MEDS: ACETYLCYSTEINE 10 %(100MG/ML) SOL 4ML NEB SCH ×3 (05:35→18:16)
[2022-05-03] MEDS: PIPERACILLIN-TAZOB 3.375GM 100 ML IV SCH ×2 (05:44→12:47)
[2022-05-03] MEDS: FREE WATER GT SCH ×3 (05:44→16:44)
[2022-05-03] MEDS: ACCU-CHEK COMFORT CURVE STRIP VI SCH ×3 (05:45→17:48)
[2022-05-03] MEDS: InsuLIN REG 1unit/0.01ml Soln (100units/ml) SC SCH ×3 (05:46→17:49)
[2022-05-03] MEDS: PANTOPRAZOLE 40 MG/10 ML VIAL INJ IV SCH (09:19)
[2022-05-03] MEDS: SERTRALINE HCL 50 MG TAB PO SCH (09:19)
[2022-05-03] MEDS: NUEDEXTA 20-10 MG CAPSULE PO SCH ×2 (09:20→22:52)
[2022-05-03] MEDS: RILUZOLE 50 MG PO SCH ×2 (09:21→22:52)
[2022-05-03] MEDS: fentaNYL Drip 2500mCg/250mlNS 250 ML IV SCH (13:00)
[2022-05-03] MEDS ORDERED: METOPROLOL TARTRATE 25 MG TAB PO ONE (14:15)
[2022-05-03] MEDS: PROMETHAZINE HCL 25 MG/ML 1ML IV PRN ×2 (14:38→21:53)
[2022-05-03] MEDS: METOPROLOL TARTRATE 25 MG TAB PO SCH (21:52)
[2022-05-03] MEDS: MORPHINE SULFATE INJ 2 MG/ml SYRG IV PRN (21:57)
[2022-05-03] MEDS: levoFLOXacin 500MG 100 ML IV SCH (22:51)
[2022-05-04] VITALS (31 sets, daily range): BP systolic 96–150; BP diastolic 41–86
[2022-05-04] MEDS: FREE WATER GT SCH ×4 (01:19→18:32)
[2022-05-04] MEDS: ALBUTEROL SULF 2.5 MG/0.5ML(0.5%) NEB SOLN NEB SCH ×6 (02:31→21:54)
[2022-05-04] MEDS: IPRATROPIUM BROM 0.5 MG/2.5ML INH SOL NEB SCH ×6 (02:31→21:54)
[2022-05-04] MEDS: ACETYLCYSTEINE 10 %(100MG/ML) SOL 4ML NEB SCH ×4 (02:34→18:39)
[2022-05-04] MEDS: PROMETHAZINE HCL 25 MG/ML 1ML IV PRN ×2 (03:27→12:00)
[2022-05-04] MEDS: ALPRAZolam 0.25 MG TAB PO PRN ×2 (03:28→16:55)
[2022-05-04] MEDS: ACCU-CHEK COMFORT CURVE STRIP VI SCH ×4 (06:00→18:32)
[2022-05-04] MEDS: InsuLIN REG 1unit/0.01ml Soln (100units/ml) SC SCH ×4 (06:00→18:00)
[2022-05-04 06:28] LABS: Basophils # (auto) 0.1 10 ^3/uL (0-0.2); Basophils % (auto) 0.7 % (0.0-2.0); Eosinophils # (auto) 0.2 10 ^3/uL (0-0.8); Eosinophils % (auto) 1.6 % (0.0-7.0); Hematocrit 25.8 % (36.0-46.0); Hemoglobin 8.7 g/dL (12.2-16.2); Lymphocytes # (auto) 2.2 10 ^3/uL (0.4-5.4); Mean Corpuscular Hemoglobin 28.9 pg (28.0-32.0); Mean Corpuscular Hgb Conc. 33.6 g/dL (32.0-36.0); Monocytes # (auto) 0.8 10 ^3/uL (0-1.3); Monocytes % (auto) 7.8 % (0.0-12.0); Neutrophils # (auto) 7.3 10 ^3/uL (1.6-8.6); Neutrophils % (auto) 68.9 % (37.0-80.0); Red Cell Distribution Width 14.3 % (11.8-14.3); White Blood Cell 10.6 10^3/uL (4.4-10.8)
[2022-05-04 08:22] LABS: Potassium 4.9 mmol/L (3.5-5.1)
[2022-05-04 08:30] LABS: BUN/Creatinine Ratio 15.6; Bilirubin, Total 0.7 mg/dL (0.2-1.0); Calcium 8.2 mg/dL (8.5-10.1); Total Protein 5.7 g/dL (6.4-8.2)
[2022-05-04] MEDS: PANTOPRAZOLE 40 MG/10 ML VIAL INJ IV SCH (10:59)
[2022-05-04] MEDS: NUEDEXTA 20-10 MG CAPSULE PO SCH ×2 (10:59→22:40)
[2022-05-04] MEDS: METOPROLOL TARTRATE 25 MG TAB PO SCH ×2 (11:00→22:39)
[2022-05-04] MEDS: SERTRALINE HCL 50 MG TAB PO SCH (11:00)
[2022-05-04] MEDS: RILUZOLE 50 MG PO SCH ×2 (11:00→22:41)
[2022-05-04] MEDS: fentaNYL Drip 2500mCg/250mlNS 250 ML IV SCH (15:45)
[2022-05-04] MEDS: Vital AF 1.2 Cal 1 liter bottle GT SCH (16:55)
[2022-05-04] MEDS: levoFLOXacin 500MG 100 ML IV SCH (22:39)
[2022-05-04] MEDS: [UNRECOGNIZED DRUG - OTHER] GT SCH (22:40)
[2022-05-05] VITALS (35 sets, daily range): BP systolic 121–187; BP diastolic 61–88
[2022-05-05] MEDS: ALBUTEROL SULF 2.5 MG/0.5ML(0.5%) NEB SOLN NEB SCH ×6 (00:47→23:38)
[2022-05-05] MEDS: IPRATROPIUM BROM 0.5 MG/2.5ML INH SOL NEB SCH ×6 (00:47→23:38)
[2022-05-05] MEDS: ACETYLCYSTEINE 10 %(100MG/ML) SOL 4ML NEB SCH ×4 (00:47→18:26)
[2022-05-05] MEDS: FREE WATER GT SCH ×4 (01:01→18:23)
[2022-05-05] MEDS: ALPRAZolam 0.25 MG TAB PO PRN (01:02)
[2022-05-05] MEDS: InsuLIN REG 1unit/0.01ml Soln (100units/ml) SC SCH ×4 (06:00→18:32)
[2022-05-05] MEDS: ACCU-CHEK COMFORT CURVE STRIP VI SCH ×4 (06:08→18:23)
[2022-05-05] MEDS: PROMETHAZINE HCL 25 MG/ML 1ML IV PRN ×2 (06:10→21:42)
[2022-05-05] MEDS: SERTRALINE HCL 50 MG TAB PO SCH (10:03)
[2022-05-05] MEDS: NUEDEXTA 20-10 MG CAPSULE PO SCH ×2 (10:03→22:06)
[2022-05-05] MEDS: METOPROLOL TARTRATE 25 MG TAB PO SCH ×2 (10:03→22:02)
[2022-05-05] MEDS: RILUZOLE 50 MG PO SCH ×2 (10:03→22:06)
[2022-05-05] MEDS: PANTOPRAZOLE 40 MG/10 ML VIAL INJ IV SCH (10:03)
[2022-05-05] MEDS: [UNRECOGNIZED DRUG - OTHER] GT SCH ×2 (10:03→22:06)
[2022-05-05] MEDS: fentaNYL Drip 2500mCg/250mlNS 250 ML IV SCH (15:45)
[2022-05-05] MEDS: [UNRECOGNIZED DRUG - MIXTURE] GT SCH (18:23)
[2022-05-05] MEDS: levoFLOXacin 500MG 100 ML IV SCH (22:03)
[2022-05-05] MEDS: MORPHINE SULFATE INJ 2 MG/ml SYRG IV PRN (22:47)
[2022-05-06] VITALS (32 sets, daily range): BP systolic 122–215; BP diastolic 45–86
[2022-05-06] MEDS: ACCU-CHEK COMFORT CURVE STRIP VI SCH ×5 (00:06→23:50)
[2022-05-06] MEDS: FREE WATER GT SCH ×5 (00:06→23:50)
[2022-05-06] MEDS: InsuLIN REG 1unit/0.01ml Soln (100units/ml) SC SCH ×5 (00:07→23:51)
[2022-05-06] MEDS: ACETYLCYSTEINE 10 %(100MG/ML) SOL 4ML NEB SCH ×5 (00:07→22:17)
[2022-05-06] MEDS: ALBUTEROL SULF 2.5 MG/0.5ML(0.5%) NEB SOLN NEB SCH ×6 (02:22→22:16)
[2022-05-06] MEDS: IPRATROPIUM BROM 0.5 MG/2.5ML INH SOL NEB SCH ×6 (02:23→22:16)
[2022-05-06] MEDS: PROMETHAZINE HCL 25 MG/ML 1ML IV PRN ×2 (07:39→14:41)
[2022-05-06] MEDS: MORPHINE SULFATE INJ 2 MG/ml SYRG IV PRN ×3 (07:40→18:20)
[2022-05-06] MEDS: [UNRECOGNIZED DRUG - MIXTURE] GT SCH ×3 (08:00→17:57)
[2022-05-06] MEDS: PANTOPRAZOLE 40 MG/10 ML VIAL INJ IV SCH (09:40)
[2022-05-06] MEDS: SERTRALINE HCL 50 MG TAB PO SCH (09:40)
[2022-05-06] MEDS: METOPROLOL TARTRATE 25 MG TAB PO SCH ×2 (09:41→21:40)
[2022-05-06] MEDS: NUEDEXTA 20-10 MG CAPSULE PO SCH ×2 (09:41→21:41)
[2022-05-06] MEDS: RILUZOLE 50 MG PO SCH ×2 (09:42→21:41)
[2022-05-06] MEDS: [UNRECOGNIZED DRUG - OTHER] GT SCH ×2 (09:42→21:41)
[2022-05-06 15:01] LABS: Urine Bacteria FEW /hpf (None Seen); Urine Blood 3+ /uL (Negative); Urine Budding Yeast MODERATE /hpf (None Seen); Urine Specific Gravity 1.008 (1.001-1.035); Urine WBC 25 /hpf (0 - 5)
[2022-05-06] MEDS: fentaNYL Drip 2500mCg/250mlNS 250 ML IV SCH (15:45)
[2022-05-06] MEDS: hydrALAZINE HCL 20 MG/ML VL IV PRN (16:54)
[2022-05-06] MEDS: levoFLOXacin 500MG 100 ML IV SCH (21:40)
[2022-05-07] VITALS (36 sets, daily range): BP systolic 106–166; BP diastolic 49–88
[2022-05-07] MEDS: IPRATROPIUM BROM 0.5 MG/2.5ML INH SOL NEB SCH ×6 (02:05→22:28)
[2022-05-07] MEDS: ALBUTEROL SULF 2.5 MG/0.5ML(0.5%) NEB SOLN NEB SCH ×6 (02:05→22:28)
[2022-05-07] MEDS: PROMETHAZINE HCL 25 MG/ML 1ML IV PRN (03:20)
[2022-05-07] MEDS: MORPHINE SULFATE INJ 2 MG/ml SYRG IV PRN ×5 (03:21→23:42)
[2022-05-07 03:55] LABS: Basophils # (auto) 0.1 10 ^3/uL (0-0.2); Basophils % (auto) 0.6 % (0.0-2.0); Eosinophils # (auto) 0.2 10 ^3/uL (0-0.8); Eosinophils % (auto) 1.8 % (0.0-7.0); Hemoglobin 9.4 g/dL (12.2-16.2); Lymphocytes # (auto) 1.3 10 ^3/uL (0.4-5.4); Lymphocytes % (auto) 15.7 % (10.0-50.0); Mean Corpuscular Hemoglobin 27.7 pg (28.0-32.0); Mean Corpuscular Hgb Conc. 32.6 g/dL (32.0-36.0); Monocytes # (auto) 0.7 10 ^3/uL (0-1.3); Neutrophils # (auto) 6.3 10 ^3/uL (1.6-8.6); Neutrophils % (auto) 73.9 % (37.0-80.0); Red Blood Cells 3.41 10^6/uL (4.0-5.20); Red Cell Distribution Width 14.2 % (11.8-14.3); White Blood Cell 8.6 10^3/uL (4.4-10.8)
[2022-05-07 04:11] LABS: BUN/Creatinine Ratio 17.6; Calcium 8.3 mg/dL (8.5-10.1); Potassium 3.9 mmol/L (3.5-5.1)
[2022-05-07] MEDS: FREE WATER GT SCH ×4 (05:41→23:42)
[2022-05-07] MEDS: ACCU-CHEK COMFORT CURVE STRIP VI SCH ×4 (05:42→23:45)
[2022-05-07] MEDS: InsuLIN REG 1unit/0.01ml Soln (100units/ml) SC SCH ×4 (05:43→23:45)
[2022-05-07] MEDS: ACETYLCYSTEINE 10 %(100MG/ML) SOL 4ML NEB SCH ×3 (05:54→18:25)
[2022-05-07] MEDS: PANTOPRAZOLE 40 MG/10 ML VIAL INJ IV SCH (09:27)
[2022-05-07] MEDS: LISINOPRIL 10 MG TAB PO SCH (09:28)
[2022-05-07] MEDS: METOPROLOL TARTRATE 25 MG TAB PO SCH ×2 (09:28→21:32)
[2022-05-07] MEDS: SERTRALINE HCL 50 MG TAB PO SCH (09:29)
[2022-05-07] MEDS: [UNRECOGNIZED DRUG - MIXTURE] GT SCH ×3 (09:30→19:00)
[2022-05-07] MEDS: NUEDEXTA 20-10 MG CAPSULE PO SCH ×2 (09:30→21:33)
[2022-05-07] MEDS: [UNRECOGNIZED DRUG - OTHER] GT SCH ×2 (09:30→21:33)
[2022-05-07] MEDS: RILUZOLE 50 MG PO SCH ×2 (09:30→21:32)
[2022-05-07] MEDS ORDERED: ENOXAPARIN SOD 30 MG/0.3 ML SYRINGE SC ONE (15:45)
[2022-05-07] MEDS: fentaNYL Drip 2500mCg/250mlNS 250 ML IV SCH (15:45)
[2022-05-07] MEDS: levoFLOXacin 500MG 100 ML IV SCH (21:28)
[2022-05-08] VITALS (35 sets, daily range): BP systolic 98–129; BP diastolic 41–72
[2022-05-08] MEDS: IPRATROPIUM BROM 0.5 MG/2.5ML INH SOL NEB SCH ×6 (02:22→22:30)
[2022-05-08] MEDS: ALBUTEROL SULF 2.5 MG/0.5ML(0.5%) NEB SOLN NEB SCH ×6 (02:22→22:30)
[2022-05-08] MEDS: MORPHINE SULFATE INJ 2 MG/ml SYRG IV PRN ×4 (04:50→20:20)
[2022-05-08] MEDS: ACETYLCYSTEINE 10 %(100MG/ML) SOL 4ML NEB SCH ×4 (05:59→19:18)
[2022-05-08] MEDS: InsuLIN REG 1unit/0.01ml Soln (100units/ml) SC SCH ×4 (06:00→23:32)
[2022-05-08] MEDS: ACCU-CHEK COMFORT CURVE STRIP VI SCH ×4 (06:12→23:32)
[2022-05-08] MEDS: FREE WATER GT SCH ×4 (06:12→23:33)
[2022-05-08] MEDS: PANTOPRAZOLE 40 MG/10 ML VIAL INJ IV SCH (10:00)
[2022-05-08] MEDS: SERTRALINE HCL 50 MG TAB PO SCH (10:01)
[2022-05-08] MEDS: LISINOPRIL 10 MG TAB PO SCH (10:01)
[2022-05-08] MEDS: ENOXAPARIN SOD 30 MG/0.3 ML SYRINGE SC SCH (10:01)
[2022-05-08] MEDS: METOPROLOL TARTRATE 25 MG TAB PO SCH ×2 (10:01→22:00)
[2022-05-08] MEDS: RILUZOLE 50 MG PO SCH ×2 (10:01→22:00)
[2022-05-08] MEDS: NUEDEXTA 20-10 MG CAPSULE PO SCH ×2 (10:02→22:00)
[2022-05-08] MEDS: [UNRECOGNIZED DRUG - OTHER] GT SCH ×2 (10:02→22:00)
[2022-05-08] MEDS: [UNRECOGNIZED DRUG - MIXTURE] GT SCH ×3 (10:02→18:00)
[2022-05-08] MEDS: ALBUTEROL SULF 2.5 MG/0.5ML(0.5%) NEB SOLN NEB PRN (12:29)
[2022-05-08] MEDS: fentaNYL Drip 2500mCg/250mlNS 250 ML IV SCH (15:45)
[2022-05-08] MEDS: levoFLOXacin 500MG 100 ML IV SCH (21:54)
[2022-05-09] VITALS (33 sets, daily range): BP systolic 101–180; BP diastolic 45–84
[2022-05-09] MEDS: MORPHINE SULFATE INJ 2 MG/ml SYRG IV PRN ×5 (01:20→23:15)
[2022-05-09] MEDS: ALBUTEROL SULF 2.5 MG/0.5ML(0.5%) NEB SOLN NEB SCH ×6 (03:20→22:02)
[2022-05-09] MEDS: IPRATROPIUM BROM 0.5 MG/2.5ML INH SOL NEB SCH ×6 (03:20→22:02)
[2022-05-09] MEDS: ACETYLCYSTEINE 10 %(100MG/ML) SOL 4ML NEB SCH ×4 (03:20→18:32)
[2022-05-09] MEDS: InsuLIN REG 1unit/0.01ml Soln (100units/ml) SC SCH ×3 (06:00→18:00)
[2022-05-09] MEDS: ACCU-CHEK COMFORT CURVE STRIP VI SCH ×3 (06:17→18:30)
[2022-05-09] MEDS: FREE WATER GT SCH ×3 (06:18→18:30)
[2022-05-09] MEDS: [UNRECOGNIZED DRUG - MIXTURE] GT SCH ×3 (08:12→18:30)
[2022-05-09] MEDS: SERTRALINE HCL 50 MG TAB PO SCH (09:50)
[2022-05-09] MEDS: PANTOPRAZOLE 40 MG/10 ML VIAL INJ IV SCH (09:50)
[2022-05-09] MEDS: ENOXAPARIN SOD 30 MG/0.3 ML SYRINGE SC SCH (09:51)
[2022-05-09] MEDS: RILUZOLE 50 MG PO SCH ×2 (09:51→22:12)
[2022-05-09] MEDS: METOPROLOL TARTRATE 25 MG TAB PO SCH ×2 (09:51→22:13)
[2022-05-09] MEDS: LISINOPRIL 10 MG TAB PO SCH (09:51)
[2022-05-09] MEDS: [UNRECOGNIZED DRUG - OTHER] GT SCH ×2 (09:52→22:12)
[2022-05-09] MEDS: NUEDEXTA 20-10 MG CAPSULE PO SCH ×2 (09:52→22:12)
[2022-05-09] MEDS: fentaNYL Drip 2500mCg/250mlNS 250 ML IV SCH (15:45)
[2022-05-09] MEDS: ALPRAZolam 0.25 MG TAB PO PRN (16:58)
[2022-05-09] MEDS: levoFLOXacin 500MG 100 ML IV SCH (22:12)
[2022-05-09] MEDS: hydrALAZINE HCL 20 MG/ML VL IV PRN (23:55)
[2022-05-10] VITALS (33 sets, daily range): BP systolic 93–158; BP diastolic 34–84
[2022-05-10] MEDS: IPRATROPIUM BROM 0.5 MG/2.5ML INH SOL NEB SCH ×6 (00:02→22:18)
[2022-05-10] MEDS: ACETYLCYSTEINE 10 %(100MG/ML) SOL 4ML NEB SCH ×4 (00:02→18:29)
[2022-05-10] MEDS: ALBUTEROL SULF 2.5 MG/0.5ML(0.5%) NEB SOLN NEB SCH ×6 (00:02→22:18)
[2022-05-10] MEDS: ACCU-CHEK COMFORT CURVE STRIP VI SCH ×4 (00:03→18:06)
[2022-05-10] MEDS: FREE WATER GT SCH ×4 (00:03→18:06)
[2022-05-10] MEDS: LORazepam 2MG/ML-1ML VIAL IV PRN (02:28)
[2022-05-10] MEDS: ALPRAZolam 0.25 MG TAB PO PRN (04:06)
[2022-05-10 04:26] LABS: Basophils # (auto) 0.1 10 ^3/uL (0-0.2); Basophils % (auto) 0.9 % (0.0-2.0); Eosinophils # (auto) 0.1 10 ^3/uL (0-0.8); Eosinophils % (auto) 2.1 % (0.0-7.0); Hematocrit 29.8 % (36.0-46.0); Hemoglobin 9.5 g/dL (12.2-16.2); Lymphocytes # (auto) 1.2 10 ^3/uL (0.4-5.4); Lymphocytes % (auto) 17.7 % (10.0-50.0); Mean Corpuscular Hemoglobin 27.4 pg (28.0-32.0); Mean Corpuscular Volume 85.6 fL (80.0-100.0); Monocytes # (auto) 0.5 10 ^3/uL (0-1.3); Monocytes % (auto) 6.5 % (0.0-12.0); Neutrophils # (auto) 5.1 10 ^3/uL (1.6-8.6); Neutrophils % (auto) 72.8 % (37.0-80.0); Red Blood Cells 3.48 10^6/uL (4.0-5.20); Red Cell Distribution Width 14.3 % (11.8-14.3); White Blood Cell 7.1 10^3/uL (4.4-10.8)
[2022-05-10 04:55] LABS: BUN/Creatinine Ratio 31.3; Calcium 8.2 mg/dL (8.5-10.1); Magnesium 1.7 mg/dL (1.6-2.6); Phosphorus 3.8 mg/dL (2.5-4.90); Potassium 4.3 mmol/L (3.5-5.1)
[2022-05-10] MEDS: InsuLIN REG 1unit/0.01ml Soln (100units/ml) SC SCH ×4 (06:00→18:00)
[2022-05-10] MEDS: [UNRECOGNIZED DRUG - MIXTURE] GT SCH ×3 (09:06→18:06)
[2022-05-10] MEDS: ENOXAPARIN SOD 30 MG/0.3 ML SYRINGE SC SCH (09:47)
[2022-05-10] MEDS: SERTRALINE HCL 50 MG TAB PO SCH (09:47)
[2022-05-10] MEDS: METOPROLOL TARTRATE 25 MG TAB PO SCH ×2 (09:48→22:11)
[2022-05-10] MEDS: LISINOPRIL 10 MG TAB PO SCH (09:48)
[2022-05-10] MEDS: MORPHINE SULFATE INJ 2 MG/ml SYRG IV PRN ×2 (09:49→22:21)
[2022-05-10] MEDS: [UNRECOGNIZED DRUG - OTHER] GT SCH ×2 (09:49→22:00)
[2022-05-10] MEDS: NUEDEXTA 20-10 MG CAPSULE PO SCH ×2 (09:49→22:12)
[2022-05-10] MEDS: RILUZOLE 50 MG PO SCH ×2 (09:49→22:12)
[2022-05-10] MEDS: PANTOPRAZOLE 40 MG/10 ML VIAL INJ IV SCH (09:49)
[2022-05-10] MEDS: ALBUTEROL SULF 2.5 MG/0.5ML(0.5%) NEB SOLN NEB PRN (11:47)
[2022-05-10] MEDS: fentaNYL Drip 2500mCg/250mlNS 250 ML IV SCH (15:20)
[2022-05-11] VITALS (33 sets, daily range): BP systolic 113–165; BP diastolic 64–77
[2022-05-11] MEDS: ACCU-CHEK COMFORT CURVE STRIP VI SCH ×5 (00:32→23:45)
[2022-05-11] MEDS: FREE WATER GT SCH ×5 (00:32→23:45)
[2022-05-11] MEDS: MORPHINE SULFATE INJ 2 MG/ml SYRG IV PRN ×4 (02:09→23:36)
[2022-05-11] MEDS: ALBUTEROL SULF 2.5 MG/0.5ML(0.5%) NEB SOLN NEB SCH ×6 (02:13→22:29)
[2022-05-11] MEDS: IPRATROPIUM BROM 0.5 MG/2.5ML INH SOL NEB SCH ×6 (02:13→22:29)
[2022-05-11 04:10] LABS: Basophils # (auto) 0.1 10 ^3/uL (0-0.2); Basophils % (auto) 1.1 % (0.0-2.0); Eosinophils # (auto) 0.2 10 ^3/uL (0-0.8); Eosinophils % (auto) 3.1 % (0.0-7.0); Hemoglobin 9.7 g/dL (12.2-16.2); Lymphocytes # (auto) 1.5 10 ^3/uL (0.4-5.4); Lymphocytes % (auto) 23.6 % (10.0-50.0); Mean Corpuscular Hemoglobin 27.8 pg (28.0-32.0); Mean Corpuscular Hgb Conc. 32.3 g/dL (32.0-36.0); Mean Corpuscular Volume 86.1 fL (80.0-100.0); Monocytes # (auto) 0.4 10 ^3/uL (0-1.3); Neutrophils % (auto) 65.2 % (37.0-80.0); Nucleated Red Blood Cells % 0.1 %; Red Blood Cells 3.48 10^6/uL (4.0-5.20); Red Cell Distribution Width 14.3 % (11.8-14.3); White Blood Cell 6.2 10^3/uL (4.4-10.8)
[2022-05-11 04:25] LABS: Calcium 8.3 mg/dL (8.5-10.1); Potassium 4.5 mmol/L (3.5-5.1)
[2022-05-11 04:30] LABS: BUN/Creatinine Ratio 39.3; Bilirubin, Total 0.5 mg/dL (0.2-1.0); Total Protein 5.2 g/dL (6.4-8.2)
[2022-05-11] MEDS: InsuLIN REG 1unit/0.01ml Soln (100units/ml) SC SCH ×5 (06:00→23:45)
[2022-05-11] MEDS: ACETYLCYSTEINE 10 %(100MG/ML) SOL 4ML NEB SCH ×3 (06:44→22:29)
[2022-05-11] MEDS: diphenhdrAMINE HCL 50 MG/1 ML VL IV PRN ×3 (07:54→23:35)
[2022-05-11] MEDS: [UNRECOGNIZED DRUG - MIXTURE] GT SCH ×3 (09:48→17:36)
[2022-05-11] MEDS: SERTRALINE HCL 50 MG TAB PO SCH (09:51)
[2022-05-11] MEDS: ENOXAPARIN SOD 30 MG/0.3 ML SYRINGE SC SCH (09:51)
[2022-05-11] MEDS: LISINOPRIL 10 MG TAB PO SCH ×2 (09:51→21:35)
[2022-05-11] MEDS: PANTOPRAZOLE 40 MG/10 ML VIAL INJ IV SCH (09:51)
[2022-05-11] MEDS: levoFLOXacin 500 MG TAB PO SCH (09:52)
[2022-05-11] MEDS: RILUZOLE 50 MG PO SCH ×2 (09:52→21:36)
[2022-05-11] MEDS: NUEDEXTA 20-10 MG CAPSULE PO SCH ×2 (09:52→21:36)
[2022-05-11] MEDS: METOPROLOL TARTRATE 25 MG TAB PO SCH ×2 (09:52→22:05)
[2022-05-11] MEDS: [UNRECOGNIZED DRUG - OTHER] GT SCH ×2 (09:53→21:36)
[2022-05-11] MEDS: ALPRAZolam 0.25 MG TAB PO PRN (10:20)
[2022-05-11] MEDS: fentaNYL Drip 2500mCg/250mlNS 250 ML IV SCH (15:45)
[2022-05-11] MEDS: PROMETHAZINE HCL 25 MG/ML 1ML IV PRN (17:34)
[2022-05-12] VITALS (33 sets, daily range): BP systolic 104–154; BP diastolic 52–81
[2022-05-12] MEDS: IPRATROPIUM BROM 0.5 MG/2.5ML INH SOL NEB SCH ×6 (02:25→22:20)
[2022-05-12] MEDS: ALBUTEROL SULF 2.5 MG/0.5ML(0.5%) NEB SOLN NEB SCH ×6 (02:25→22:20)
[2022-05-12] MEDS: ALPRAZolam 0.25 MG TAB PO PRN (02:57)
[2022-05-12] MEDS: diphenhdrAMINE HCL 50 MG/1 ML VL IV PRN ×2 (03:27→10:42)
[2022-05-12] MEDS: MORPHINE SULFATE INJ 2 MG/ml SYRG IV PRN ×3 (04:08→20:42)
[2022-05-12 04:24] LABS: Basophils # (auto) 0.1 10 ^3/uL (0-0.2); Eosinophils # (auto) 0.2 10 ^3/uL (0-0.8); Mean Corpuscular Volume 85.4 fL (80.0-100.0); Neutrophils # (auto) 3.3 10 ^3/uL (1.6-8.6); White Blood Cell 5.8 10^3/uL (4.4-10.8)
[2022-05-12 04:26] LABS: Basophils % (auto) 1.4 % (0.0-2.0); Eosinophils % (auto) 3.3 % (0.0-7.0); Hematocrit 32.2 % (36.0-46.0); Hemoglobin 10.5 g/dL (12.2-16.2); Lymphocytes # (auto) 1.7 10 ^3/uL (0.4-5.4); Lymphocytes % (auto) 30.2 % (10.0-50.0); Mean Corpuscular Hemoglobin 27.8 pg (28.0-32.0); Mean Corpuscular Hgb Conc. 32.6 g/dL (32.0-36.0); Monocytes # (auto) 0.4 10 ^3/uL (0-1.3); Monocytes % (auto) 7.3 % (0.0-12.0); Neutrophils % (auto) 57.8 % (37.0-80.0); Nucleated Red Blood Cells % 0.1 %; Red Blood Cells 3.78 10^6/uL (4.0-5.20)
[2022-05-12 04:40] LABS: Albumin 2.2 g/dL (3.4-5.0); Calcium 8.3 mg/dL (8.5-10.1); Potassium 3.5 mmol/L (3.5-5.1)
[2022-05-12 04:44] LABS: BUN/Creatinine Ratio 22.7; Bilirubin, Total 0.5 mg/dL (0.2-1.0)
[2022-05-12] MEDS: InsuLIN REG 1unit/0.01ml Soln (100units/ml) SC SCH ×3 (06:00→18:00)
[2022-05-12] MEDS: FREE WATER GT SCH ×3 (06:14→18:28)
[2022-05-12] MEDS: ACCU-CHEK COMFORT CURVE STRIP VI SCH ×3 (06:14→18:29)
[2022-05-12] MEDS: ACETYLCYSTEINE 10 %(100MG/ML) SOL 4ML NEB SCH ×3 (06:35→22:20)
[2022-05-12] MEDS: [UNRECOGNIZED DRUG - MIXTURE] GT SCH ×3 (07:08→18:29)
[2022-05-12] MEDS: PANTOPRAZOLE 40 MG/10 ML VIAL INJ IV SCH (10:18)
[2022-05-12] MEDS: RILUZOLE 50 MG PO SCH ×2 (10:18→22:18)
[2022-05-12] MEDS: levoFLOXacin 500 MG TAB PO SCH (10:18)
[2022-05-12] MEDS: METOPROLOL TARTRATE 25 MG TAB PO SCH ×2 (10:19→22:18)
[2022-05-12] MEDS: ENOXAPARIN SOD 30 MG/0.3 ML SYRINGE SC SCH (10:19)
[2022-05-12] MEDS: NUEDEXTA 20-10 MG CAPSULE PO SCH ×2 (10:20→22:17)
[2022-05-12] MEDS: SERTRALINE HCL 50 MG TAB PO SCH (10:20)
[2022-05-12] MEDS: LISINOPRIL 10 MG TAB PO SCH ×2 (10:20→22:19)
[2022-05-12] MEDS: [UNRECOGNIZED DRUG - OTHER] GT SCH ×2 (10:21→22:17)
[2022-05-12] MEDS: fentaNYL Drip 2500mCg/250mlNS 250 ML IV SCH (15:08)
[2022-05-13] VITALS (35 sets, daily range): BP systolic 104–151; BP diastolic 44–84
[2022-05-13] MEDS: FREE WATER GT SCH ×4 (01:04→18:13)
[2022-05-13] MEDS: MORPHINE SULFATE INJ 2 MG/ml SYRG IV PRN ×5 (01:04→18:15)
[2022-05-13] MEDS: diphenhdrAMINE HCL 50 MG/1 ML VL IV PRN ×3 (01:40→09:55)
[2022-05-13] MEDS: ACCU-CHEK COMFORT CURVE STRIP VI SCH ×4 (01:41→18:14)
[2022-05-13] MEDS: ALBUTEROL SULF 2.5 MG/0.5ML(0.5%) NEB SOLN NEB SCH ×6 (02:26→22:14)
[2022-05-13] MEDS: IPRATROPIUM BROM 0.5 MG/2.5ML INH SOL NEB SCH ×6 (02:26→22:14)
[2022-05-13] MEDS: InsuLIN REG 1unit/0.01ml Soln (100units/ml) SC SCH ×4 (06:00→18:00)
[2022-05-13] MEDS: ACETYLCYSTEINE 10 %(100MG/ML) SOL 4ML NEB SCH ×3 (06:41→22:15)
[2022-05-13] MEDS: [UNRECOGNIZED DRUG - MIXTURE] GT SCH ×3 (08:00→18:14)
[2022-05-13] MEDS: NUEDEXTA 20-10 MG CAPSULE PO SCH ×2 (11:06→23:22)
[2022-05-13] MEDS: RILUZOLE 50 MG PO SCH ×2 (11:06→23:22)
[2022-05-13] MEDS: [UNRECOGNIZED DRUG - OTHER] GT SCH ×2 (11:06→23:21)
[2022-05-13] MEDS: ENOXAPARIN SOD 30 MG/0.3 ML SYRINGE SC SCH (11:08)
[2022-05-13] MEDS: PANTOPRAZOLE 40 MG/10 ML VIAL INJ IV SCH (11:08)
[2022-05-13] MEDS: METOPROLOL TARTRATE 25 MG TAB PO SCH ×2 (11:08→23:23)
[2022-05-13] MEDS: LISINOPRIL 10 MG TAB PO SCH ×2 (11:09→23:23)
[2022-05-13] MEDS: levoFLOXacin 500 MG TAB PO SCH (11:09)
[2022-05-13] MEDS: SERTRALINE HCL 50 MG TAB PO SCH (11:09)
[2022-05-13] MEDS: PROMETHAZINE HCL 25 MG/ML 1ML IV PRN ×2 (12:00→18:16)
[2022-05-13] MEDS: fentaNYL Drip 2500mCg/250mlNS 250 ML IV SCH (15:06)
[2022-05-14] VITALS (34 sets, daily range): BP systolic 92–164; BP diastolic 32–88
[2022-05-14] MEDS: MORPHINE SULFATE INJ 2 MG/ml SYRG IV PRN ×6 (00:01→21:55)
[2022-05-14] MEDS: FREE WATER GT SCH ×5 (00:17→23:41)
[2022-05-14] MEDS: ACCU-CHEK COMFORT CURVE STRIP VI SCH ×5 (00:18→23:41)
[2022-05-14] MEDS: IPRATROPIUM BROM 0.5 MG/2.5ML INH SOL NEB SCH ×6 (02:32→22:22)
[2022-05-14] MEDS: ALBUTEROL SULF 2.5 MG/0.5ML(0.5%) NEB SOLN NEB SCH ×6 (02:32→22:22)
[2022-05-14] MEDS: ALPRAZolam 0.25 MG TAB PO PRN (04:10)
[2022-05-14] MEDS: InsuLIN REG 1unit/0.01ml Soln (100units/ml) SC SCH ×5 (05:41→23:43)
[2022-05-14] MEDS: ACETYLCYSTEINE 10 %(100MG/ML) SOL 4ML NEB SCH ×3 (05:46→22:22)
[2022-05-14] MEDS: [UNRECOGNIZED DRUG - MIXTURE] GT SCH ×3 (08:00→17:52)
[2022-05-14] MEDS: diphenhdrAMINE HCL 50 MG/1 ML VL IV PRN ×5 (09:05→21:54)
[2022-05-14] MEDS: levoFLOXacin 500 MG TAB PO SCH (10:20)
[2022-05-14] MEDS: PANTOPRAZOLE 40 MG/10 ML VIAL INJ IV SCH (10:20)
[2022-05-14] MEDS: ENOXAPARIN SOD 30 MG/0.3 ML SYRINGE SC SCH (10:21)
[2022-05-14] MEDS: METOPROLOL TARTRATE 25 MG TAB PO SCH ×2 (10:21→21:37)
[2022-05-14] MEDS: LISINOPRIL 10 MG TAB PO SCH ×2 (10:21→21:37)
[2022-05-14] MEDS: SERTRALINE HCL 50 MG TAB PO SCH (10:21)
[2022-05-14] MEDS: RILUZOLE 50 MG PO SCH ×2 (10:22→21:35)
[2022-05-14] MEDS: NUEDEXTA 20-10 MG CAPSULE PO SCH ×2 (10:22→21:35)
[2022-05-14] MEDS: [UNRECOGNIZED DRUG - OTHER] GT SCH ×2 (10:22→21:35)
[2022-05-14] MEDS: fentaNYL Drip 2500mCg/250mlNS 250 ML IV SCH (15:45)
[2022-05-14] MEDS: LACTULOSE 20Gm/30ML SOLN PO PRN (17:49)
[2022-05-15] VITALS (35 sets, daily range): BP systolic 93–152; BP diastolic 43–72
[2022-05-15] MEDS: diphenhdrAMINE HCL 50 MG/1 ML VL IV PRN ×5 (02:02→22:13)
[2022-05-15] MEDS: MORPHINE SULFATE INJ 2 MG/ml SYRG IV PRN ×6 (02:03→22:13)
[2022-05-15] MEDS: IPRATROPIUM BROM 0.5 MG/2.5ML INH SOL NEB SCH ×6 (02:42→22:16)
[2022-05-15] MEDS: ALBUTEROL SULF 2.5 MG/0.5ML(0.5%) NEB SOLN NEB SCH ×6 (02:42→22:16)
[2022-05-15 04:07] LABS: Basophils # (auto) 0 10 ^3/uL (0-0.2); Basophils % (auto) 0.5 % (0.0-2.0); Eosinophils # (auto) 0.2 10 ^3/uL (0-0.8); Eosinophils % (auto) 2.8 % (0.0-7.0); Hematocrit 27.2 % (36.0-46.0); Lymphocytes # (auto) 1.4 10 ^3/uL (0.4-5.4); Mean Corpuscular Hemoglobin 28.8 pg (28.0-32.0); Mean Corpuscular Hgb Conc. 33.3 g/dL (32.0-36.0); Mean Corpuscular Volume 86.5 fL (80.0-100.0); Monocytes # (auto) 0.6 10 ^3/uL (0-1.3); Monocytes % (auto) 7.4 % (0.0-12.0); Neutrophils # (auto) 5.8 10 ^3/uL (1.6-8.6); Neutrophils % (auto) 72.3 % (37.0-80.0); Red Blood Cells 3.14 10^6/uL (4.0-5.20); Red Cell Distribution Width 14.4 % (11.8-14.3)
[2022-05-15 04:24] LABS: Albumin 2.1 g/dL (3.4-5.0); BUN/Creatinine Ratio 41.7; Calcium 8.1 mg/dL (8.5-10.1)
[2022-05-15 04:27] LABS: Bilirubin, Total 0.4 mg/dL (0.2-1.0); Total Protein 5.5 g/dL (6.4-8.2)
[2022-05-15] MEDS: InsuLIN REG 1unit/0.01ml Soln (100units/ml) SC SCH ×4 (06:00→23:47)
[2022-05-15] MEDS: ACETYLCYSTEINE 10 %(100MG/ML) SOL 4ML NEB SCH ×2 (06:14→22:16)
[2022-05-15] MEDS: ACCU-CHEK COMFORT CURVE STRIP VI SCH ×4 (06:26→23:45)
[2022-05-15] MEDS: FREE WATER GT SCH ×4 (06:27→23:45)
[2022-05-15] MEDS: [UNRECOGNIZED DRUG - MIXTURE] GT SCH ×3 (08:00→18:00)
[2022-05-15] MEDS: LISINOPRIL 10 MG TAB PO SCH ×2 (10:00→22:12)
[2022-05-15] MEDS: [UNRECOGNIZED DRUG - OTHER] GT SCH ×2 (10:00→22:13)
[2022-05-15] MEDS: NUEDEXTA 20-10 MG CAPSULE PO SCH ×2 (10:00→22:12)
[2022-05-15] MEDS: RILUZOLE 50 MG PO SCH ×2 (10:00→22:12)
[2022-05-15] MEDS: PANTOPRAZOLE 40 MG/10 ML VIAL INJ IV SCH (10:47)
[2022-05-15] MEDS: ENOXAPARIN SOD 30 MG/0.3 ML SYRINGE SC SCH (10:48)
[2022-05-15] MEDS: SERTRALINE HCL 50 MG TAB PO SCH (10:48)
[2022-05-15] MEDS: levoFLOXacin 500 MG TAB PO SCH (10:49)
[2022-05-15] MEDS: METOPROLOL TARTRATE 25 MG TAB PO SCH ×2 (10:50→22:12)
[2022-05-15] MEDS: fentaNYL Drip 2500mCg/250mlNS 250 ML IV SCH (15:45)
[2022-05-16] VITALS (36 sets, daily range): BP systolic 99–157; BP diastolic 30–78
[2022-05-16] MEDS: IPRATROPIUM BROM 0.5 MG/2.5ML INH SOL NEB SCH ×6 (02:18→22:23)
[2022-05-16] MEDS: ALBUTEROL SULF 2.5 MG/0.5ML(0.5%) NEB SOLN NEB SCH ×6 (02:18→22:23)
[2022-05-16] MEDS: diphenhdrAMINE HCL 50 MG/1 ML VL IV PRN ×5 (02:30→20:14)
[2022-05-16] MEDS: MORPHINE SULFATE INJ 2 MG/ml SYRG IV PRN ×5 (02:30→20:15)
[2022-05-16] MEDS: InsuLIN REG 1unit/0.01ml Soln (100units/ml) SC SCH ×4 (06:00→23:44)
[2022-05-16] MEDS: FREE WATER GT SCH ×4 (06:15→23:45)
[2022-05-16] MEDS: ACCU-CHEK COMFORT CURVE STRIP VI SCH ×4 (06:15→23:44)
[2022-05-16] MEDS: ACETYLCYSTEINE 10 %(100MG/ML) SOL 4ML NEB SCH ×3 (06:27→22:23)
[2022-05-16] MEDS: PANTOPRAZOLE 40 MG/10 ML VIAL INJ IV SCH (09:41)
[2022-05-16] MEDS: SERTRALINE HCL 50 MG TAB PO SCH (09:42)
[2022-05-16] MEDS: levoFLOXacin 500 MG TAB PO SCH (09:42)
[2022-05-16] MEDS: METOPROLOL TARTRATE 25 MG TAB PO SCH ×2 (09:43→22:00)
[2022-05-16] MEDS: LISINOPRIL 10 MG TAB PO SCH ×2 (09:43→22:01)
[2022-05-16] MEDS: [UNRECOGNIZED DRUG - OTHER] GT SCH ×2 (09:49→22:00)
[2022-05-16] MEDS: [UNRECOGNIZED DRUG - MIXTURE] GT SCH ×3 (09:49→18:00)
[2022-05-16] MEDS: ENOXAPARIN SOD 30 MG/0.3 ML SYRINGE SC SCH (09:49)
[2022-05-16] MEDS: NUEDEXTA 20-10 MG CAPSULE PO SCH ×2 (09:50→22:02)
[2022-05-16] MEDS: RILUZOLE 50 MG PO SCH ×2 (09:50→22:01)
[2022-05-16] MEDS: fentaNYL Drip 2500mCg/250mlNS 250 ML IV SCH (23:49)
[2022-05-17] VITALS (34 sets, daily range): BP systolic 108–159; BP diastolic 30–75
[2022-05-17] MEDS: diphenhdrAMINE HCL 50 MG/1 ML VL IV PRN ×7 (00:34→22:58)
[2022-05-17] MEDS: MORPHINE SULFATE INJ 2 MG/ml SYRG IV PRN ×6 (00:35→22:51)
[2022-05-17] MEDS: IPRATROPIUM BROM 0.5 MG/2.5ML INH SOL NEB SCH ×6 (02:30→22:19)
[2022-05-17] MEDS: ALBUTEROL SULF 2.5 MG/0.5ML(0.5%) NEB SOLN NEB SCH ×6 (02:30→22:19)
[2022-05-17] MEDS: ACCU-CHEK COMFORT CURVE STRIP VI SCH ×4 (05:56→23:43)
[2022-05-17] MEDS: InsuLIN REG 1unit/0.01ml Soln (100units/ml) SC SCH ×4 (05:57→23:43)
[2022-05-17] MEDS: ACETYLCYSTEINE 10 %(100MG/ML) SOL 4ML NEB SCH ×3 (06:07→22:20)
[2022-05-17] MEDS: FREE WATER GT SCH ×3 (06:21→18:24)
[2022-05-17] MEDS: [UNRECOGNIZED DRUG - MIXTURE] GT SCH ×3 (08:15→18:24)
[2022-05-17] MEDS: ALPRAZolam 0.25 MG TAB PO PRN (10:38)
[2022-05-17] MEDS: [UNRECOGNIZED DRUG - OTHER] GT SCH ×2 (11:45→21:31)
[2022-05-17] MEDS: PANTOPRAZOLE 40 MG/10 ML VIAL INJ IV SCH (11:45)
[2022-05-17] MEDS: RILUZOLE 50 MG PO SCH ×2 (11:46→21:31)
[2022-05-17] MEDS: ENOXAPARIN SOD 30 MG/0.3 ML SYRINGE SC SCH (11:47)
[2022-05-17] MEDS: levoFLOXacin 500 MG TAB PO SCH (11:48)
[2022-05-17] MEDS: LISINOPRIL 10 MG TAB PO SCH ×2 (11:48→21:30)
[2022-05-17] MEDS: METOPROLOL TARTRATE 25 MG TAB PO SCH ×2 (11:49→21:31)
[2022-05-17] MEDS: SERTRALINE HCL 50 MG TAB PO SCH (11:54)
[2022-05-17] MEDS: NUEDEXTA 20-10 MG CAPSULE PO SCH ×2 (13:42→21:31)
[2022-05-17] MEDS: fentaNYL Drip 2500mCg/250mlNS 250 ML IV SCH (15:45)
[2022-05-18] VITALS (36 sets, daily range): BP systolic 95–184; BP diastolic 30–69
[2022-05-18] MEDS: IPRATROPIUM BROM 0.5 MG/2.5ML INH SOL NEB SCH ×6 (02:46→22:25)
[2022-05-18] MEDS: ALBUTEROL SULF 2.5 MG/0.5ML(0.5%) NEB SOLN NEB SCH ×6 (02:46→22:25)
[2022-05-18] MEDS: MORPHINE SULFATE INJ 2 MG/ml SYRG IV PRN ×4 (03:05→22:28)
[2022-05-18] MEDS: diphenhdrAMINE HCL 50 MG/1 ML VL IV PRN ×4 (03:06→22:28)
[2022-05-18] MEDS: ACETYLCYSTEINE 10 %(100MG/ML) SOL 4ML NEB SCH (05:56)
[2022-05-18] MEDS: FREE WATER GT SCH ×4 (06:00→16:46)
[2022-05-18] MEDS: ACCU-CHEK COMFORT CURVE STRIP VI SCH ×3 (06:00→16:46)
[2022-05-18] MEDS: InsuLIN REG 1unit/0.01ml Soln (100units/ml) SC SCH ×3 (06:00→16:50)
[2022-05-18] MEDS: fentaNYL Drip 2500mCg/250mlNS 250 ML IV SCH (07:22)
[2022-05-18] MEDS: [UNRECOGNIZED DRUG - MIXTURE] GT SCH ×3 (08:18→16:46)
[2022-05-18] MEDS: LISINOPRIL 10 MG TAB PO SCH ×2 (09:14→21:35)
[2022-05-18] MEDS: METOPROLOL TARTRATE 25 MG TAB PO SCH ×2 (09:15→21:36)
[2022-05-18] MEDS: RILUZOLE 50 MG PO SCH ×2 (09:21→21:35)
[2022-05-18] MEDS: NUEDEXTA 20-10 MG CAPSULE PO SCH ×2 (09:21→21:35)
[2022-05-18] MEDS: ENOXAPARIN SOD 30 MG/0.3 ML SYRINGE SC SCH (09:21)
[2022-05-18] MEDS: SERTRALINE HCL 50 MG TAB PO SCH (09:22)
[2022-05-18] MEDS: PANTOPRAZOLE 40 MG/10 ML VIAL INJ IV SCH (09:22)
[2022-05-18] MEDS: levoFLOXacin 500 MG TAB PO SCH (09:22)
[2022-05-18] MEDS: [UNRECOGNIZED DRUG - OTHER] GT SCH ×2 (09:26→21:34)
[2022-05-18] MEDS: PROMETHAZINE HCL 25 MG/ML 1ML IV PRN ×2 (11:08→16:46)
[2022-05-18] MEDS: LACTULOSE 20Gm/30ML SOLN PO PRN (15:07)
[2022-05-19] VITALS (38 sets, daily range): BP systolic 101–161; BP diastolic 26–76
[2022-05-19] MEDS: PROMETHAZINE HCL 25 MG/ML 1ML IV PRN ×4 (01:00→22:23)
[2022-05-19] MEDS: IPRATROPIUM BROM 0.5 MG/2.5ML INH SOL NEB SCH ×6 (02:27→22:04)
[2022-05-19] MEDS: ALBUTEROL SULF 2.5 MG/0.5ML(0.5%) NEB SOLN NEB SCH ×6 (02:27→22:04)
[2022-05-19] MEDS: MORPHINE SULFATE INJ 2 MG/ml SYRG IV PRN ×4 (04:30→22:17)
[2022-05-19] MEDS: diphenhdrAMINE HCL 50 MG/1 ML VL IV PRN ×4 (04:30→22:23)
[2022-05-19] MEDS: InsuLIN REG 1unit/0.01ml Soln (100units/ml) SC SCH ×5 (06:00→23:57)
[2022-05-19] MEDS: ACCU-CHEK COMFORT CURVE STRIP VI SCH ×5 (06:00→23:57)
[2022-05-19] MEDS: FREE WATER GT SCH ×5 (06:00→23:57)
[2022-05-19] MEDS: [UNRECOGNIZED DRUG - MIXTURE] GT SCH ×3 (07:10→17:02)
[2022-05-19] MEDS: ENOXAPARIN SOD 30 MG/0.3 ML SYRINGE SC SCH (09:04)
[2022-05-19] MEDS: SERTRALINE HCL 50 MG TAB PO SCH (09:04)
[2022-05-19] MEDS: LISINOPRIL 10 MG TAB PO SCH ×2 (09:04→22:15)
[2022-05-19] MEDS: NUEDEXTA 20-10 MG CAPSULE PO SCH ×2 (09:05→22:18)
[2022-05-19] MEDS: PANTOPRAZOLE 40 MG/10 ML VIAL INJ IV SCH (09:05)
[2022-05-19] MEDS: METOPROLOL TARTRATE 25 MG TAB PO SCH ×2 (09:05→22:15)
[2022-05-19] MEDS: [UNRECOGNIZED DRUG - OTHER] GT SCH ×2 (09:05→22:22)
[2022-05-19] MEDS: RILUZOLE 50 MG PO SCH ×2 (09:05→22:18)
[2022-05-19 10:07] LABS: Albumin 2.4 g/dL (3.4-5.0); Calcium 8.7 mg/dL (8.5-10.1); Potassium 4.2 mmol/L (3.5-5.1)
[2022-05-19 10:09] LABS: BUN/Creatinine Ratio 27.5; Bilirubin, Total 0.5 mg/dL (0.2-1.0)
[2022-05-19 10:12] LABS: Basophils # (auto) 0.1 10 ^3/uL (0-0.2); Basophils % (auto) 0.8 % (0.0-2.0); Eosinophils # (auto) 0.3 10 ^3/uL (0-0.8); Eosinophils % (auto) 3.5 % (0.0-7.0); Hematocrit 35.8 % (36.0-46.0); Hemoglobin 11.2 g/dL (12.2-16.2); Lymphocytes # (auto) 1.9 10 ^3/uL (0.4-5.4); Mean Corpuscular Hemoglobin 27.5 pg (28.0-32.0); Mean Corpuscular Hgb Conc. 31.2 g/dL (32.0-36.0); Mean Corpuscular Volume 88.1 fL (80.0-100.0); Monocytes # (auto) 0.7 10 ^3/uL (0-1.3); Monocytes % (auto) 6.9 % (0.0-12.0); Neutrophils # (auto) 6.9 10 ^3/uL (1.6-8.6); Neutrophils % (auto) 69.8 % (37.0-80.0); Red Blood Cells 4.07 10^6/uL (4.0-5.20); Red Cell Distribution Width 14.4 % (11.8-14.3); White Blood Cell 9.8 10^3/uL (4.4-10.8)
[2022-05-19] MEDS ORDERED: MAGNESIUM CITRATE SOLUTION 300 ML BTL PO ONE (15:30)
[2022-05-19] MEDS ORDERED: SENNA 8.6 MG TAB PO ONE (16:00)
[2022-05-20] VITALS (35 sets, daily range): BP systolic 101–186; BP diastolic 22–91
[2022-05-20] MEDS: ALBUTEROL SULF 2.5 MG/0.5ML(0.5%) NEB SOLN NEB SCH ×6 (02:14→23:12)
[2022-05-20] MEDS: IPRATROPIUM BROM 0.5 MG/2.5ML INH SOL NEB SCH ×6 (02:14→23:12)
[2022-05-20] MEDS: diphenhdrAMINE HCL 50 MG/1 ML VL IV PRN ×5 (03:10→22:15)
[2022-05-20] MEDS: PROMETHAZINE HCL 25 MG/ML 1ML IV PRN ×5 (03:10→22:13)
[2022-05-20] MEDS: MORPHINE SULFATE INJ 2 MG/ml SYRG IV PRN ×5 (03:18→22:13)
[2022-05-20] MEDS: ACCU-CHEK COMFORT CURVE STRIP VI SCH ×3 (05:49→17:49)
[2022-05-20] MEDS: FREE WATER GT SCH ×3 (05:49→17:29)
[2022-05-20] MEDS: InsuLIN REG 1unit/0.01ml Soln (100units/ml) SC SCH ×3 (05:49→17:53)
[2022-05-20] MEDS: [UNRECOGNIZED DRUG - MIXTURE] GT SCH ×3 (07:26→17:29)
[2022-05-20] MEDS: PANTOPRAZOLE 40 MG/10 ML VIAL INJ IV SCH (09:06)
[2022-05-20] MEDS: SERTRALINE HCL 50 MG TAB PO SCH (09:07)
[2022-05-20] MEDS: METOPROLOL TARTRATE 25 MG TAB PO SCH ×2 (09:07→22:05)
[2022-05-20] MEDS: LISINOPRIL 10 MG TAB PO SCH ×2 (09:07→21:50)
[2022-05-20] MEDS: RILUZOLE 50 MG PO SCH ×2 (09:08→21:48)
[2022-05-20] MEDS: LACTULOSE 20Gm/30ML SOLN PO PRN (09:08)
[2022-05-20] MEDS: [UNRECOGNIZED DRUG - OTHER] GT SCH ×2 (09:08→21:48)
[2022-05-20] MEDS: ENOXAPARIN SOD 30 MG/0.3 ML SYRINGE SC SCH (09:08)
[2022-05-20] MEDS: NUEDEXTA 20-10 MG CAPSULE PO SCH ×2 (09:08→21:48)
[2022-05-20] MEDS: hydrALAZINE HCL 20 MG/ML VL IV PRN (13:26)
[2022-05-20] MEDS ORDERED: LORazepam 2MG/ML-1ML VIAL IV ONE (15:45)
[2022-05-21] VITALS (37 sets, daily range): BP systolic 74–171; BP diastolic 23–94
[2022-05-21] MEDS: FREE WATER GT SCH ×4 (00:19→17:45)
[2022-05-21] MEDS: ACCU-CHEK COMFORT CURVE STRIP VI SCH ×4 (00:19→17:45)
[2022-05-21] MEDS: PROMETHAZINE HCL 25 MG/ML 1ML IV PRN ×2 (02:23→06:25)
[2022-05-21] MEDS: MORPHINE SULFATE INJ 2 MG/ml SYRG IV PRN ×2 (02:23→06:27)
[2022-05-21] MEDS: diphenhdrAMINE HCL 50 MG/1 ML VL IV PRN ×2 (02:24→06:25)
[2022-05-21] MEDS: ALBUTEROL SULF 2.5 MG/0.5ML(0.5%) NEB SOLN NEB SCH ×6 (02:53→22:19)
[2022-05-21] MEDS: IPRATROPIUM BROM 0.5 MG/2.5ML INH SOL NEB SCH ×6 (02:53→22:19)
[2022-05-21 04:32] LABS: Basophils # (auto) 0.1 10 ^3/uL (0-0.2); Basophils % (auto) 0.4 % (0.0-2.0); Eosinophils # (auto) 0.1 10 ^3/uL (0-0.8); Eosinophils % (auto) 0.6 % (0.0-7.0); Hematocrit 35.1 % (36.0-46.0); Hemoglobin 11.4 g/dL (12.2-16.2); Lymphocytes % (auto) 12.9 % (10.0-50.0); Mean Corpuscular Hgb Conc. 32.5 g/dL (32.0-36.0); Monocytes # (auto) 0.6 10 ^3/uL (0-1.3); Monocytes % (auto) 3.8 % (0.0-12.0); Neutrophils # (auto) 12.7 10 ^3/uL (1.6-8.6); Neutrophils % (auto) 82.3 % (37.0-80.0); Red Blood Cells 4.08 10^6/uL (4.0-5.20); Red Cell Distribution Width 14.4 % (11.8-14.3); White Blood Cell 15.4 10^3/uL (4.4-10.8)
[2022-05-21 04:49] LABS: BUN/Creatinine Ratio 43.8; Calcium 8.7 mg/dL (8.5-10.1); Potassium 4.4 mmol/L (3.5-5.1)
[2022-05-21] MEDS: InsuLIN REG 1unit/0.01ml Soln (100units/ml) SC SCH ×4 (05:41→17:51)
[2022-05-21] MEDS: [UNRECOGNIZED DRUG - MIXTURE] GT SCH ×3 (07:47→17:44)
[2022-05-21] MEDS ORDERED: MIDAZOLAM HCL 5 MG/ML-1ML VIAL ONE (09:43)
[2022-05-21] MEDS ORDERED: LIDOCAINE 2%HCL (LOCAL ANESTH.) INJ 20ML MDV ONE (09:44)
[2022-05-21] MEDS ORDERED: LIDOCAINE 2% JELLY 11ml (GLYDO) ONE (09:45)
[2022-05-21] MEDS ORDERED: fentaNYL CITRATE 100 MCG/2 ML VL ONE ×2 (09:45→10:00)
[2022-05-21] MEDS ORDERED: LIDOCAINE HCL 2% TOP JELLY 5ML TOP ONE (09:46)
[2022-05-21] MEDS: LISINOPRIL 10 MG TAB PO SCH (10:00)
[2022-05-21] MEDS: METOPROLOL TARTRATE 25 MG TAB PO SCH ×2 (10:00→21:54)
[2022-05-21] MEDS ORDERED: MIDAZOLAM HCL 2MG/2ML 2ml VIAL (1mg/ml) ONE (10:01)
[2022-05-21] MEDS: ENOXAPARIN SOD 30 MG/0.3 ML SYRINGE SC SCH (10:20)
[2022-05-21] MEDS: SERTRALINE HCL 50 MG TAB PO SCH (10:21)
[2022-05-21] MEDS: RILUZOLE 50 MG PO SCH ×2 (10:22→22:01)
[2022-05-21] MEDS: PANTOPRAZOLE 40 MG/10 ML VIAL INJ IV SCH (10:23)
[2022-05-21] MEDS: [UNRECOGNIZED DRUG - OTHER] GT SCH ×2 (10:23→22:01)
[2022-05-21] MEDS: NUEDEXTA 20-10 MG CAPSULE PO SCH ×2 (10:23→22:01)
[2022-05-21] MEDS ORDERED: ENOXAPARIN SOD 80 MG/0.8ML SYRINGE SC ONE (15:30)
[2022-05-21] MEDS ORDERED: ENOXAPARIN SOD 40 MG/0.4 ML SYRINGE SC ONE (16:45)
[2022-05-21] MEDS: ENOXAPARIN SOD 80 MG/0.8ML SYRINGE SC SCH (21:53)
[2022-05-21] MEDS: NOREPINEPHRINE 8 MG/250ML KIT 250 ML IV SCH (23:23)
[2022-05-22] VITALS (101 sets, daily range): BP systolic 78–149; BP diastolic 45–83
[2022-05-22] MEDS: ACCU-CHEK COMFORT CURVE STRIP VI SCH ×4 (00:21→18:08)
[2022-05-22] MEDS: diphenhdrAMINE HCL 50 MG/1 ML VL IV PRN ×3 (02:07→22:41)
[2022-05-22] MEDS: IPRATROPIUM BROM 0.5 MG/2.5ML INH SOL NEB SCH ×6 (02:16→22:30)
[2022-05-22] MEDS: ALBUTEROL SULF 2.5 MG/0.5ML(0.5%) NEB SOLN NEB SCH ×6 (02:17→22:30)
[2022-05-22] MEDS: PROMETHAZINE HCL 25 MG/ML 1ML IV PRN ×3 (04:00→22:40)
[2022-05-22] MEDS: MORPHINE SULFATE INJ 2 MG/ml SYRG IV PRN ×3 (04:00→22:42)
[2022-05-22 04:15] LABS: Hemoglobin 10.4 g/dL (12.2-16.2); Mean Corpuscular Hgb Conc. 32.5 g/dL (32.0-36.0); Red Blood Cells 3.72 10^6/uL (4.0-5.20); Red Cell Distribution Width 14.7 % (11.8-14.3); White Blood Cell 17.6 10^3/uL (4.4-10.8)
[2022-05-22 04:45] LABS: BUN/Creatinine Ratio 42.1; Calcium 8.7 mg/dL (8.5-10.1)
[2022-05-22 04:49] LABS: Basophils % (manual) 0 (0.0-2.0); Blast Cells 0; Metamyelocytes % 0; Monocytes % (manual) 0 (0-12); Myelocytes % 0; Promyelocytes % 0; Reactive Lymphocytes 0
[2022-05-22] MEDS: FREE WATER GT SCH ×4 (05:45→18:00)
[2022-05-22] MEDS: InsuLIN REG 1unit/0.01ml Soln (100units/ml) SC SCH ×4 (05:45→18:09)
[2022-05-22 06:35] LABS: Band Neutrophils % (manual) 3; Eosinophils % (manual) 2 (0-7); Lymphocytes % (manual) 7 (10.0-50.0)
[2022-05-22] MEDS: [UNRECOGNIZED DRUG - MIXTURE] GT SCH ×3 (08:00→18:00)
[2022-05-22] MEDS: PANTOPRAZOLE 40 MG/10 ML VIAL INJ IV SCH (09:56)
[2022-05-22] MEDS: ENOXAPARIN SOD 80 MG/0.8ML SYRINGE SC SCH ×2 (09:57→22:14)
[2022-05-22] MEDS: SERTRALINE HCL 50 MG TAB PO SCH (09:57)
[2022-05-22] MEDS: RILUZOLE 50 MG PO SCH ×2 (09:58→22:14)
[2022-05-22] MEDS: METOPROLOL TARTRATE 25 MG TAB PO SCH ×2 (09:58→22:00)
[2022-05-22] MEDS: [UNRECOGNIZED DRUG - OTHER] GT SCH ×2 (09:58→22:15)
[2022-05-22] MEDS: NUEDEXTA 20-10 MG CAPSULE PO SCH ×2 (09:58→22:14)
[2022-05-22] MEDS ORDERED: CEFEPIME 2 GM in SODIUM CHL 0.9% 50 ML IV SCH (14:00)
[2022-05-22] MEDS ORDERED: FUROSEMIDE 20 MG/2 ML VIAL IV ONE (16:00)
[2022-05-22] MEDS: CIPROFLOXACIN 400MG/200ML 200 ML IV SCH (22:14)
[2022-05-22] MEDS: NOREPINEPHRINE 8 MG/250ML KIT 250 ML IV SCH (23:00)
[2022-05-23] VITALS (96 sets, daily range): BP systolic 77–164; BP diastolic 36–92
[2022-05-23] MEDS: ACCU-CHEK COMFORT CURVE STRIP VI SCH ×4 (00:23→18:19)
[2022-05-23] MEDS: InsuLIN REG 1unit/0.01ml Soln (100units/ml) SC SCH ×4 (00:24→18:00)
[2022-05-23] MEDS: IPRATROPIUM BROM 0.5 MG/2.5ML INH SOL NEB SCH ×6 (02:51→22:03)
[2022-05-23] MEDS: ALBUTEROL SULF 2.5 MG/0.5ML(0.5%) NEB SOLN NEB SCH ×6 (02:51→22:03)
[2022-05-23] MEDS: diphenhdrAMINE HCL 50 MG/1 ML VL IV PRN ×3 (02:59→19:59)
[2022-05-23] MEDS: PROMETHAZINE HCL 25 MG/ML 1ML IV PRN ×3 (02:59→19:58)
[2022-05-23] MEDS: MORPHINE SULFATE INJ 2 MG/ml SYRG IV PRN ×3 (03:00→20:00)
[2022-05-23 03:56] LABS: Basophils # (auto) 0.1 10 ^3/uL (0-0.2); Basophils % (auto) 0.8 % (0.0-2.0); Eosinophils # (auto) 0.2 10 ^3/uL (0-0.8); Eosinophils % (auto) 1.2 % (0.0-7.0); Hematocrit 29.8 % (36.0-46.0); Hemoglobin 9.6 g/dL (12.2-16.2); Lymphocytes # (auto) 2.6 10 ^3/uL (0.4-5.4); Lymphocytes % (auto) 19.2 % (10.0-50.0); Mean Corpuscular Hemoglobin 27.5 pg (28.0-32.0); Mean Corpuscular Hgb Conc. 32.1 g/dL (32.0-36.0); Mean Corpuscular Volume 85.6 fL (80.0-100.0); Monocytes # (auto) 0.9 10 ^3/uL (0-1.3); Monocytes % (auto) 6.8 % (0.0-12.0); Neutrophils # (auto) 9.8 10 ^3/uL (1.6-8.6); Red Blood Cells 3.49 10^6/uL (4.0-5.20); Red Cell Distribution Width 14.3 % (11.8-14.3); White Blood Cell 13.6 10^3/uL (4.4-10.8)
[2022-05-23 04:09] LABS: Albumin 2.2 g/dL (3.4-5.0); Calcium 8.4 mg/dL (8.5-10.1); Magnesium 1.7 mg/dL (1.6-2.6); Potassium 3.7 mmol/L (3.5-5.1)
[2022-05-23 04:13] LABS: BUN/Creatinine Ratio 45.3; Bilirubin, Total 0.7 mg/dL (0.2-1.0); Total Protein 5.8 g/dL (6.4-8.2)
[2022-05-23] MEDS: FREE WATER GT SCH ×4 (06:00→18:19)
[2022-05-23] MEDS: [UNRECOGNIZED DRUG - MIXTURE] GT SCH ×3 (08:00→18:00)
[2022-05-23] MEDS: ENOXAPARIN SOD 80 MG/0.8ML SYRINGE SC SCH ×2 (09:58→22:07)
[2022-05-23] MEDS: CIPROFLOXACIN 400MG/200ML 200 ML IV SCH (09:58)
[2022-05-23] MEDS: PANTOPRAZOLE 40 MG/10 ML VIAL INJ IV SCH (09:58)
[2022-05-23] MEDS: RILUZOLE 50 MG PO SCH ×2 (09:58→22:07)
[2022-05-23] MEDS: NUEDEXTA 20-10 MG CAPSULE PO SCH ×2 (09:58→22:06)
[2022-05-23] MEDS: METOPROLOL TARTRATE 25 MG TAB PO SCH ×2 (09:59→22:00)
[2022-05-23] MEDS: [UNRECOGNIZED DRUG - OTHER] GT SCH ×2 (09:59→22:06)
[2022-05-23] MEDS ORDERED: IOHEXOL 350 MG/ML 100ML IJ ONE (10:17)
[2022-05-23] MEDS: SERTRALINE HCL 50 MG TAB PO SCH (11:48)
[2022-05-23] MEDS: MEROPENEM 1GM IVPB 100 ML IV SCH ×2 (14:25→22:06)
[2022-05-23] MEDS: NOREPINEPHRINE 8 MG/250ML KIT 250 ML IV SCH (23:00)
[2022-05-24] VITALS (92 sets, daily range): BP systolic 89–159; BP diastolic 49–82
[2022-05-24] MEDS: ACCU-CHEK COMFORT CURVE STRIP VI SCH ×5 (00:11→23:57)
[2022-05-24] MEDS: FREE WATER GT SCH ×5 (00:11→21:26)
[2022-05-24] MEDS: PROMETHAZINE HCL 25 MG/ML 1ML IV PRN ×5 (00:12→18:46)
[2022-05-24] MEDS: diphenhdrAMINE HCL 50 MG/1 ML VL IV PRN ×5 (00:12→18:46)
[2022-05-24] MEDS: MORPHINE SULFATE INJ 2 MG/ml SYRG IV PRN ×5 (00:13→18:47)
[2022-05-24] MEDS: ALBUTEROL SULF 2.5 MG/0.5ML(0.5%) NEB SOLN NEB SCH ×6 (02:12→22:25)
[2022-05-24] MEDS: IPRATROPIUM BROM 0.5 MG/2.5ML INH SOL NEB SCH ×6 (02:12→22:25)
[2022-05-24 04:00] LABS: Basophils # (auto) 0.1 10 ^3/uL (0-0.2); Basophils % (auto) 1.1 % (0.0-2.0); Eosinophils # (auto) 0.2 10 ^3/uL (0-0.8); Eosinophils % (auto) 1.8 % (0.0-7.0); Hematocrit 27.7 % (36.0-46.0); Hemoglobin 8.9 g/dL (12.2-16.2); Lymphocytes # (auto) 1.7 10 ^3/uL (0.4-5.4); Lymphocytes % (auto) 16.2 % (10.0-50.0); Mean Corpuscular Hemoglobin 27.9 pg (28.0-32.0); Mean Corpuscular Hgb Conc. 32.3 g/dL (32.0-36.0); Mean Corpuscular Volume 86.6 fL (80.0-100.0); Monocytes # (auto) 0.7 10 ^3/uL (0-1.3); Monocytes % (auto) 6.5 % (0.0-12.0); Neutrophils # (auto) 7.9 10 ^3/uL (1.6-8.6); Neutrophils % (auto) 74.4 % (37.0-80.0); Red Cell Distribution Width 14.3 % (11.8-14.3); White Blood Cell 10.6 10^3/uL (4.4-10.8)
[2022-05-24 04:13] LABS: Calcium 8.2 mg/dL (8.5-10.1); Magnesium 1.8 mg/dL (1.6-2.6)
[2022-05-24 04:15] LABS: BUN/Creatinine Ratio 57.1
[2022-05-24] MEDS: MEROPENEM 1GM IVPB 100 ML IV SCH ×3 (05:16→21:24)
[2022-05-24] MEDS: InsuLIN REG 1unit/0.01ml Soln (100units/ml) SC SCH ×5 (05:21→23:58)
[2022-05-24] MEDS: [UNRECOGNIZED DRUG - MIXTURE] GT SCH ×3 (07:23→16:54)
[2022-05-24] MEDS ORDERED: FUROSEMIDE 20 MG/2 ML VIAL IV ONE (09:00)
[2022-05-24] MEDS: PANTOPRAZOLE 40 MG/10 ML VIAL INJ IV SCH (09:01)
[2022-05-24] MEDS: SERTRALINE HCL 50 MG TAB PO SCH (09:01)
[2022-05-24] MEDS: ENOXAPARIN SOD 80 MG/0.8ML SYRINGE SC SCH (09:02)
[2022-05-24] MEDS: [UNRECOGNIZED DRUG - OTHER] GT SCH ×2 (09:02→21:24)
[2022-05-24] MEDS: RILUZOLE 50 MG PO SCH ×2 (09:02→21:25)
[2022-05-24] MEDS: NUEDEXTA 20-10 MG CAPSULE PO SCH ×2 (09:02→21:25)
[2022-05-24] MEDS: METOPROLOL TARTRATE 25 MG TAB PO SCH ×2 (09:03→22:00)
[2022-05-24] MEDS: ACETYLCYSTEINE 20%(200MG/ML) SOL 4ML NEB SCH ×2 (14:13→18:56)
[2022-05-24] MEDS: NOREPINEPHRINE 8 MG/250ML KIT 250 ML IV SCH (21:25)
[2022-05-25] VITALS (34 sets, daily range): BP systolic 88–157; BP diastolic 50–90
[2022-05-25] MEDS: diphenhdrAMINE HCL 50 MG/1 ML VL IV PRN ×4 (00:17→23:16)
[2022-05-25] MEDS: PROMETHAZINE HCL 25 MG/ML 1ML IV PRN ×4 (00:17→23:16)
[2022-05-25] MEDS: MORPHINE SULFATE INJ 2 MG/ml SYRG IV PRN ×4 (00:19→23:16)
[2022-05-25] MEDS: ALBUTEROL SULF 2.5 MG/0.5ML(0.5%) NEB SOLN NEB SCH ×6 (02:26→23:23)
[2022-05-25] MEDS: IPRATROPIUM BROM 0.5 MG/2.5ML INH SOL NEB SCH ×6 (02:26→23:23)
[2022-05-25 04:23] LABS: Basophils # (auto) 0.1 10 ^3/uL (0-0.2); Basophils % (auto) 0.9 % (0.0-2.0); Eosinophils # (auto) 0.4 10 ^3/uL (0-0.8); Eosinophils % (auto) 4.5 % (0.0-7.0); Hematocrit 28.9 % (36.0-46.0); Hemoglobin 9.1 g/dL (12.2-16.2); Lymphocytes # (auto) 1.9 10 ^3/uL (0.4-5.4); Lymphocytes % (auto) 22.9 % (10.0-50.0); Mean Corpuscular Hgb Conc. 31.5 g/dL (32.0-36.0); Mean Corpuscular Volume 85.6 fL (80.0-100.0); Monocytes # (auto) 0.5 10 ^3/uL (0-1.3); Monocytes % (auto) 6.2 % (0.0-12.0); Neutrophils # (auto) 5.3 10 ^3/uL (1.6-8.6); Neutrophils % (auto) 65.5 % (37.0-80.0); Red Blood Cells 3.37 10^6/uL (4.0-5.20); Red Cell Distribution Width 14.2 % (11.8-14.3); White Blood Cell 8.1 10^3/uL (4.4-10.8)
[2022-05-25 04:33] LABS: Albumin 1.9 g/dL (3.4-5.0); BUN/Creatinine Ratio 68.2; Bilirubin, Total 0.4 mg/dL (0.2-1.0); Calcium 7.9 mg/dL (8.5-10.1); Total Protein 5.3 g/dL (6.4-8.2)
[2022-05-25] MEDS: MEROPENEM 1GM IVPB 100 ML IV SCH ×3 (05:37→23:03)
[2022-05-25] MEDS: FREE WATER GT SCH ×4 (05:37→23:15)
[2022-05-25] MEDS: ACCU-CHEK COMFORT CURVE STRIP VI SCH ×4 (05:38→23:15)
[2022-05-25] MEDS: [UNRECOGNIZED DRUG - MIXTURE] GT SCH ×3 (05:38→16:08)
[2022-05-25] MEDS: InsuLIN REG 1unit/0.01ml Soln (100units/ml) SC SCH ×4 (05:40→23:15)
[2022-05-25] MEDS: ACETYLCYSTEINE 20%(200MG/ML) SOL 4ML NEB SCH ×3 (06:01→23:23)
[2022-05-25] MEDS: METOPROLOL TARTRATE 25 MG TAB PO SCH ×2 (08:10→23:03)
[2022-05-25] MEDS: PANTOPRAZOLE 40 MG/10 ML VIAL INJ IV SCH (08:47)
[2022-05-25] MEDS: ENOXAPARIN SOD 40 MG/0.4 ML SYRINGE SC SCH (08:49)
[2022-05-25] MEDS: RILUZOLE 50 MG PO SCH ×2 (08:49→23:02)
[2022-05-25] MEDS: NUEDEXTA 20-10 MG CAPSULE PO SCH ×2 (08:49→23:02)
[2022-05-25] MEDS: [UNRECOGNIZED DRUG - OTHER] GT SCH ×2 (08:49→23:01)
[2022-05-25] MEDS: SERTRALINE HCL 50 MG TAB PO SCH (08:49)
[2022-05-25] MEDS ORDERED: DOCUSATE ORAL LIQUID 100 MG/10 ML UD GT ONE (14:45)
[2022-05-25] MEDS: NOREPINEPHRINE 8 MG/250ML KIT 250 ML IV SCH (23:00)
[2022-05-25] MEDS: DOCUSATE ORAL LIQUID 100 MG/10 ML UD GT SCH (23:03)
[2022-05-26] VITALS (32 sets, daily range): BP systolic 102–174; BP diastolic 33–79
[2022-05-26] MEDS: ALBUTEROL SULF 2.5 MG/0.5ML(0.5%) NEB SOLN NEB SCH ×6 (03:02→22:11)
[2022-05-26] MEDS: IPRATROPIUM BROM 0.5 MG/2.5ML INH SOL NEB SCH ×6 (03:02→22:11)
[2022-05-26] MEDS: diphenhdrAMINE HCL 50 MG/1 ML VL IV PRN ×3 (03:04→19:28)
[2022-05-26] MEDS: MORPHINE SULFATE INJ 2 MG/ml SYRG IV PRN ×3 (03:05→19:28)
[2022-05-26] MEDS: PROMETHAZINE HCL 25 MG/ML 1ML IV PRN (05:20)
[2022-05-26] MEDS: FREE WATER GT SCH ×4 (05:46→23:37)
[2022-05-26] MEDS: ACCU-CHEK COMFORT CURVE STRIP VI SCH ×4 (05:46→23:37)
[2022-05-26] MEDS: MEROPENEM 1GM IVPB 100 ML IV SCH ×3 (05:46→21:28)
[2022-05-26] MEDS: InsuLIN REG 1unit/0.01ml Soln (100units/ml) SC SCH ×4 (05:52→23:38)
[2022-05-26] MEDS: ACETYLCYSTEINE 20%(200MG/ML) SOL 4ML NEB SCH ×3 (07:10→22:11)
[2022-05-26] MEDS: [UNRECOGNIZED DRUG - MIXTURE] GT SCH ×3 (07:26→16:12)
[2022-05-26] MEDS: METOPROLOL TARTRATE 25 MG TAB PO SCH ×2 (08:28→21:27)
[2022-05-26] MEDS: PANTOPRAZOLE 40 MG/10 ML VIAL INJ IV SCH (08:48)
[2022-05-26] MEDS: NUEDEXTA 20-10 MG CAPSULE PO SCH ×2 (08:49→21:28)
[2022-05-26] MEDS: [UNRECOGNIZED DRUG - OTHER] GT SCH ×2 (08:49→21:28)
[2022-05-26] MEDS: RILUZOLE 50 MG PO SCH ×2 (08:49→21:29)
[2022-05-26] MEDS: ENOXAPARIN SOD 40 MG/0.4 ML SYRINGE SC SCH (08:49)
[2022-05-26] MEDS: SERTRALINE HCL 50 MG TAB PO SCH (08:50)
[2022-05-26] MEDS: DOCUSATE ORAL LIQUID 100 MG/10 ML UD GT SCH ×2 (08:50→21:28)
[2022-05-26] MEDS: NOREPINEPHRINE 8 MG/250ML KIT 250 ML IV SCH (23:00)
[2022-05-27] VITALS (36 sets, daily range): BP systolic 91–140; BP diastolic 40–83
[2022-05-27] MEDS: MORPHINE SULFATE INJ 2 MG/ml SYRG IV PRN ×5 (00:48→23:43)
[2022-05-27] MEDS: IPRATROPIUM BROM 0.5 MG/2.5ML INH SOL NEB SCH ×6 (02:20→22:21)
[2022-05-27] MEDS: ALBUTEROL SULF 2.5 MG/0.5ML(0.5%) NEB SOLN NEB SCH ×6 (02:20→22:22)
[2022-05-27 04:34] LABS: INR 1.04 (0.9-1.15); Partial Thromboplastin Time 35.2 sec (24.6-33.4)
[2022-05-27] MEDS: diphenhdrAMINE HCL 50 MG/1 ML VL IV PRN ×3 (05:33→23:43)
[2022-05-27] MEDS: PROMETHAZINE HCL 25 MG/ML 1ML IV PRN ×3 (05:33→23:42)
[2022-05-27] MEDS: MEROPENEM 1GM IVPB 100 ML IV SCH ×3 (05:40→21:40)
[2022-05-27] MEDS: FREE WATER GT SCH ×4 (05:40→23:34)
[2022-05-27] MEDS: InsuLIN REG 1unit/0.01ml Soln (100units/ml) SC SCH ×4 (05:41→23:32)
[2022-05-27] MEDS: ACCU-CHEK COMFORT CURVE STRIP VI SCH ×4 (05:41→23:30)
[2022-05-27] MEDS: ACETYLCYSTEINE 20%(200MG/ML) SOL 4ML NEB SCH ×2 (06:34→13:45)
[2022-05-27] MEDS: [UNRECOGNIZED DRUG - MIXTURE] GT SCH ×3 (08:24→18:47)
[2022-05-27] MEDS: METOPROLOL TARTRATE 25 MG TAB PO SCH ×2 (10:00→21:40)
[2022-05-27] MEDS: DOCUSATE ORAL LIQUID 100 MG/10 ML UD GT SCH ×2 (10:08→21:37)
[2022-05-27] MEDS: PANTOPRAZOLE 40 MG/10 ML VIAL INJ IV SCH (10:08)
[2022-05-27] MEDS: [UNRECOGNIZED DRUG - OTHER] GT SCH ×2 (10:08→21:40)
[2022-05-27] MEDS: RILUZOLE 50 MG PO SCH ×2 (10:09→21:40)
[2022-05-27] MEDS: NUEDEXTA 20-10 MG CAPSULE PO SCH ×2 (10:09→21:40)
[2022-05-27] MEDS: SERTRALINE HCL 50 MG TAB PO SCH (10:10)
[2022-05-27] MEDS: ENOXAPARIN SOD 40 MG/0.4 ML SYRINGE SC SCH (10:10)
[2022-05-28] VITALS (36 sets, daily range): BP systolic 100–147; BP diastolic 44–82
[2022-05-28] MEDS: IPRATROPIUM BROM 0.5 MG/2.5ML INH SOL NEB SCH ×6 (02:31→22:17)
[2022-05-28] MEDS: ALBUTEROL SULF 2.5 MG/0.5ML(0.5%) NEB SOLN NEB SCH ×6 (02:31→22:17)
[2022-05-28] MEDS: FREE WATER GT SCH ×4 (05:36→23:29)
[2022-05-28] MEDS: ACCU-CHEK COMFORT CURVE STRIP VI SCH ×4 (05:37→23:29)
[2022-05-28] MEDS: MEROPENEM 1GM IVPB 100 ML IV SCH ×3 (05:37→21:41)
[2022-05-28] MEDS: InsuLIN REG 1unit/0.01ml Soln (100units/ml) SC SCH ×4 (05:38→23:29)
[2022-05-28] MEDS: [UNRECOGNIZED DRUG - MIXTURE] GT SCH ×3 (08:00→17:59)
[2022-05-28] MEDS: NOREPINEPHRINE 8 MG/250ML KIT 250 ML IV SCH (08:40)
[2022-05-28] MEDS: [UNRECOGNIZED DRUG - OTHER] GT SCH ×2 (09:44→21:41)
[2022-05-28] MEDS: SERTRALINE HCL 50 MG TAB PO SCH (09:44)
[2022-05-28] MEDS: DOCUSATE ORAL LIQUID 100 MG/10 ML UD GT SCH ×2 (09:45→21:41)
[2022-05-28] MEDS: RILUZOLE 50 MG PO SCH ×2 (09:46→21:41)
[2022-05-28] MEDS: ENOXAPARIN SOD 40 MG/0.4 ML SYRINGE SC SCH (09:46)
[2022-05-28] MEDS: NUEDEXTA 20-10 MG CAPSULE PO SCH ×2 (09:47→21:41)
[2022-05-28] MEDS: PANTOPRAZOLE 40 MG/10 ML VIAL INJ IV SCH (09:47)
[2022-05-28] MEDS: METOPROLOL TARTRATE 25 MG TAB PO SCH ×2 (09:51→21:42)
[2022-05-28] MEDS: PROMETHAZINE HCL 25 MG/ML 1ML IV PRN ×2 (12:20→22:48)
[2022-05-28] MEDS: MORPHINE SULFATE INJ 2 MG/ml SYRG IV PRN ×3 (12:26→22:48)
[2022-05-28] MEDS: diphenhdrAMINE HCL 50 MG/1 ML VL IV PRN ×3 (13:27→22:48)
[2022-05-29] VITALS (36 sets, daily range): BP systolic 83–149; BP diastolic 43–83
[2022-05-29] MEDS: IPRATROPIUM BROM 0.5 MG/2.5ML INH SOL NEB SCH ×6 (02:11→22:15)
[2022-05-29] MEDS: ALBUTEROL SULF 2.5 MG/0.5ML(0.5%) NEB SOLN NEB SCH ×6 (02:11→22:15)
[2022-05-29 03:58] LABS: Eosinophils # (auto) 0.5 10 ^3/uL (0-0.8); Mean Corpuscular Volume 86.3 fL (80.0-100.0)
[2022-05-29 04:01] LABS: Basophils # (auto) 0.1 10 ^3/uL (0-0.2); Basophils % (auto) 0.6 % (0.0-2.0); Hematocrit 33.3 % (36.0-46.0); Hemoglobin 10.4 g/dL (12.2-16.2); Lymphocytes # (auto) 1.6 10 ^3/uL (0.4-5.4); Lymphocytes % (auto) 16.6 % (10.0-50.0); Mean Corpuscular Hgb Conc. 31.3 g/dL (32.0-36.0); Monocytes # (auto) 0.7 10 ^3/uL (0-1.3); Monocytes % (auto) 6.8 % (0.0-12.0); Neutrophils # (auto) 7.1 10 ^3/uL (1.6-8.6); Red Blood Cells 3.86 10^6/uL (4.0-5.20); Red Cell Distribution Width 14.7 % (11.8-14.3); White Blood Cell 9.9 10^3/uL (4.4-10.8)
[2022-05-29 04:12] LABS: Albumin 2.4 g/dL (3.4-5.0); Calcium 8.5 mg/dL (8.5-10.1); Potassium 4.4 mmol/L (3.5-5.1)
[2022-05-29 04:15] LABS: BUN/Creatinine Ratio 43.2
[2022-05-29 04:18] LABS: Bilirubin, Total 0.4 mg/dL (0.2-1.0); Total Protein 6.2 g/dL (6.4-8.2)
[2022-05-29] MEDS: InsuLIN REG 1unit/0.01ml Soln (100units/ml) SC SCH ×5 (06:00→23:46)
[2022-05-29] MEDS: MEROPENEM 1GM IVPB 100 ML IV SCH ×3 (06:09→22:22)
[2022-05-29] MEDS: FREE WATER GT SCH ×4 (06:09→23:47)
[2022-05-29] MEDS: ACCU-CHEK COMFORT CURVE STRIP VI SCH ×4 (06:10→23:47)
[2022-05-29] MEDS: PROMETHAZINE HCL 25 MG/ML 1ML IV PRN ×2 (06:32→15:24)
[2022-05-29] MEDS: [UNRECOGNIZED DRUG - MIXTURE] GT SCH ×3 (08:12→17:49)
[2022-05-29] MEDS: PANTOPRAZOLE 40 MG/10 ML VIAL INJ IV SCH (10:33)
[2022-05-29] MEDS: SERTRALINE HCL 50 MG TAB PO SCH (10:34)
[2022-05-29] MEDS: ENOXAPARIN SOD 40 MG/0.4 ML SYRINGE SC SCH (10:34)
[2022-05-29] MEDS: METOPROLOL TARTRATE 25 MG TAB PO SCH ×2 (10:35→22:00)
[2022-05-29] MEDS: RILUZOLE 50 MG PO SCH ×2 (10:35→22:29)
[2022-05-29] MEDS: NUEDEXTA 20-10 MG CAPSULE PO SCH ×2 (10:35→22:28)
[2022-05-29] MEDS: diphenhdrAMINE HCL 50 MG/1 ML VL IV PRN ×2 (10:36→22:50)
[2022-05-29] MEDS: [UNRECOGNIZED DRUG - OTHER] GT SCH ×2 (10:36→22:28)
[2022-05-29] MEDS: DOCUSATE ORAL LIQUID 100 MG/10 ML UD GT SCH ×2 (10:36→22:00)
[2022-05-29] MEDS: MORPHINE SULFATE INJ 2 MG/ml SYRG IV PRN ×3 (10:38→22:50)
[2022-05-30] VITALS (53 sets, daily range): BP systolic 99–160; BP diastolic 45–83
[2022-05-30] MEDS: ALBUTEROL SULF 2.5 MG/0.5ML(0.5%) NEB SOLN NEB SCH ×6 (02:07→23:03)
[2022-05-30] MEDS: IPRATROPIUM BROM 0.5 MG/2.5ML INH SOL NEB SCH ×6 (02:07→23:03)
[2022-05-30] MEDS: MORPHINE SULFATE INJ 2 MG/ml SYRG IV PRN ×3 (05:15→16:58)
[2022-05-30] MEDS: PROMETHAZINE HCL 25 MG/ML 1ML IV PRN ×3 (05:15→19:48)
[2022-05-30] MEDS: MEROPENEM 1GM IVPB 100 ML IV SCH ×3 (05:46→21:54)
[2022-05-30] MEDS: FREE WATER GT SCH ×3 (05:46→18:04)
[2022-05-30] MEDS: InsuLIN REG 1unit/0.01ml Soln (100units/ml) SC SCH ×3 (05:47→18:00)
[2022-05-30] MEDS: ACCU-CHEK COMFORT CURVE STRIP VI SCH ×3 (05:48→18:04)
[2022-05-30] MEDS: [UNRECOGNIZED DRUG - MIXTURE] GT SCH ×3 (08:00→18:04)
[2022-05-30] MEDS: PANTOPRAZOLE 40 MG/10 ML VIAL INJ IV SCH (09:39)
[2022-05-30] MEDS: ENOXAPARIN SOD 40 MG/0.4 ML SYRINGE SC SCH (09:40)
[2022-05-30] MEDS: METOPROLOL TARTRATE 25 MG TAB PO SCH ×2 (09:40→21:55)
[2022-05-30] MEDS: SERTRALINE HCL 50 MG TAB PO SCH (09:40)
[2022-05-30] MEDS: RILUZOLE 50 MG PO SCH ×2 (09:41→21:55)
[2022-05-30] MEDS: [UNRECOGNIZED DRUG - OTHER] GT SCH ×2 (09:41→21:54)
[2022-05-30] MEDS: NUEDEXTA 20-10 MG CAPSULE PO SCH ×2 (09:41→21:55)
[2022-05-30] MEDS: DOCUSATE ORAL LIQUID 100 MG/10 ML UD GT SCH ×2 (09:42→21:56)
[2022-05-30] MEDS: diphenhdrAMINE HCL 50 MG/1 ML VL IV PRN (19:48)
[2022-05-31] VITALS (35 sets, daily range): BP systolic 94–139; BP diastolic 46–76
[2022-05-31] MEDS: ACCU-CHEK COMFORT CURVE STRIP VI SCH ×3 (00:17→12:00)
[2022-05-31] MEDS: FREE WATER GT SCH ×4 (00:18→18:15)
[2022-05-31] MEDS: ALPRAZolam 0.25 MG TAB PO PRN (00:58)
[2022-05-31] MEDS: ALBUTEROL SULF 2.5 MG/0.5ML(0.5%) NEB SOLN NEB SCH ×6 (02:10→22:53)
[2022-05-31] MEDS: IPRATROPIUM BROM 0.5 MG/2.5ML INH SOL NEB SCH ×6 (02:10→22:53)
[2022-05-31] MEDS: PROMETHAZINE HCL 25 MG/ML 1ML IV PRN ×2 (06:00→14:48)
[2022-05-31] MEDS: MORPHINE SULFATE INJ 2 MG/ml SYRG IV PRN ×3 (06:00→14:48)
[2022-05-31] MEDS: InsuLIN REG 1unit/0.01ml Soln (100units/ml) SC SCH ×3 (06:00→12:00)
[2022-05-31] MEDS: MEROPENEM 1GM IVPB 100 ML IV SCH ×3 (06:04→21:50)
[2022-05-31] MEDS: [UNRECOGNIZED DRUG - MIXTURE] GT SCH ×3 (08:00→18:15)
[2022-05-31] MEDS: DOCUSATE ORAL LIQUID 100 MG/10 ML UD GT SCH ×2 (10:00→21:50)
[2022-05-31] MEDS: PANTOPRAZOLE 40 MG/10 ML VIAL INJ IV SCH (10:45)
[2022-05-31] MEDS: RILUZOLE 50 MG PO SCH ×2 (10:45→21:50)
[2022-05-31] MEDS: [UNRECOGNIZED DRUG - OTHER] GT SCH ×2 (10:45→21:50)
[2022-05-31] MEDS: NUEDEXTA 20-10 MG CAPSULE PO SCH ×2 (10:45→21:50)
[2022-05-31] MEDS: ENOXAPARIN SOD 40 MG/0.4 ML SYRINGE SC SCH (10:46)
[2022-05-31] MEDS: METOPROLOL TARTRATE 25 MG TAB PO SCH ×2 (10:46→21:51)
[2022-05-31] MEDS: SERTRALINE HCL 50 MG TAB PO SCH (10:46)
[2022-05-31] MEDS: diphenhdrAMINE HCL 50 MG/1 ML VL IV PRN ×3 (10:47→20:04)
[2022-06-01] VITALS (35 sets, daily range): BP systolic 90–148; BP diastolic 44–94
[2022-06-01] MEDS: FREE WATER GT SCH ×5 (00:24→23:49)
[2022-06-01] MEDS: PROMETHAZINE HCL 25 MG/ML 1ML IV PRN ×4 (02:00→19:34)
[2022-06-01] MEDS: MORPHINE SULFATE INJ 2 MG/ml SYRG IV PRN ×5 (02:01→23:15)
[2022-06-01] MEDS: IPRATROPIUM BROM 0.5 MG/2.5ML INH SOL NEB SCH ×3 (02:50→22:22)
[2022-06-01] MEDS: ALBUTEROL SULF 2.5 MG/0.5ML(0.5%) NEB SOLN NEB SCH ×3 (02:50→22:22)
[2022-06-01] MEDS: MEROPENEM 1GM IVPB 100 ML IV SCH (05:38)
[2022-06-01] MEDS: [UNRECOGNIZED DRUG - MIXTURE] GT SCH ×3 (08:00→18:00)
[2022-06-01] MEDS: DOCUSATE ORAL LIQUID 100 MG/10 ML UD GT SCH ×2 (10:00→22:00)
[2022-06-01] MEDS: PANTOPRAZOLE 40 MG/10 ML VIAL INJ IV SCH (10:55)
[2022-06-01] MEDS: NUEDEXTA 20-10 MG CAPSULE PO SCH ×2 (10:55→23:02)
[2022-06-01] MEDS: METOPROLOL TARTRATE 25 MG TAB PO SCH ×2 (10:55→22:00)
[2022-06-01] MEDS: SERTRALINE HCL 50 MG TAB PO SCH (10:55)
[2022-06-01] MEDS: [UNRECOGNIZED DRUG - OTHER] GT SCH ×2 (10:55→23:05)
[2022-06-01] MEDS: ENOXAPARIN SOD 40 MG/0.4 ML SYRINGE SC SCH (10:55)
[2022-06-01] MEDS: RILUZOLE 50 MG PO SCH ×2 (10:55→23:03)
[2022-06-01] MEDS: diphenhdrAMINE HCL 50 MG/1 ML VL IV PRN ×3 (14:56→23:23)
[2022-06-02] VITALS (35 sets, daily range): BP systolic 72–150; BP diastolic 32–89
[2022-06-02] MEDS: IPRATROPIUM BROM 0.5 MG/2.5ML INH SOL NEB SCH ×6 (02:12→23:14)
[2022-06-02] MEDS: ALBUTEROL SULF 2.5 MG/0.5ML(0.5%) NEB SOLN NEB SCH ×6 (02:12→23:14)
[2022-06-02] MEDS: FREE WATER GT SCH ×3 (06:44→18:00)
[2022-06-02] MEDS: [UNRECOGNIZED DRUG - MIXTURE] GT SCH ×3 (08:00→16:28)
[2022-06-02] MEDS: DOCUSATE ORAL LIQUID 100 MG/10 ML UD GT SCH ×2 (10:00→22:39)
[2022-06-02] MEDS: SERTRALINE HCL 50 MG TAB PO SCH (10:00)
[2022-06-02] MEDS: METOPROLOL TARTRATE 25 MG TAB PO SCH ×2 (10:00→22:39)
[2022-06-02] MEDS: RILUZOLE 50 MG PO SCH ×2 (10:00→22:39)
[2022-06-02] MEDS: NUEDEXTA 20-10 MG CAPSULE PO SCH ×2 (10:00→22:39)
[2022-06-02] MEDS: PANTOPRAZOLE 40 MG/10 ML VIAL INJ IV SCH (10:00)
[2022-06-02] MEDS: ENOXAPARIN SOD 40 MG/0.4 ML SYRINGE SC SCH (10:00)
[2022-06-02] MEDS: [UNRECOGNIZED DRUG - OTHER] GT SCH ×2 (10:00→22:39)
[2022-06-02] MEDS ORDERED: POTASSIUM EFFERVESENT TAB 25 MEQ GT ONE (10:30)
[2022-06-02] MEDS ORDERED: FUROSEMIDE 20 MG TAB PO ONE (10:30)
[2022-06-02] MEDS: PROMETHAZINE HCL 25 MG/ML 1ML IV PRN ×3 (10:37→23:05)
[2022-06-02] MEDS: diphenhdrAMINE HCL 50 MG/1 ML VL IV PRN ×3 (10:38→23:05)
[2022-06-02] MEDS: MORPHINE SULFATE INJ 2 MG/ml SYRG IV PRN ×3 (10:42→23:20)
[2022-06-02] MEDS: ACETYLCYSTEINE 20%(200MG/ML) SOL 4ML NEB SCH ×2 (14:25→23:14)
[2022-06-03] VITALS (50 sets, daily range): BP systolic 60–162; BP diastolic 24–84
[2022-06-03] MEDS: ALBUTEROL SULF 2.5 MG/0.5ML(0.5%) NEB SOLN NEB SCH ×6 (02:43→22:28)
[2022-06-03] MEDS: IPRATROPIUM BROM 0.5 MG/2.5ML INH SOL NEB SCH ×6 (02:43→22:28)
[2022-06-03 05:07] LABS: Basophils # (auto) 0.1 10 ^3/uL (0-0.2); Basophils % (auto) 0.6 % (0.0-2.0); Eosinophils # (auto) 0.5 10 ^3/uL (0-0.8); Hematocrit 29.4 % (36.0-46.0); Hemoglobin 9.5 g/dL (12.2-16.2); Lymphocytes # (auto) 1.8 10 ^3/uL (0.4-5.4); Lymphocytes % (auto) 19.8 % (10.0-50.0); Mean Corpuscular Hemoglobin 27.4 pg (28.0-32.0); Mean Corpuscular Hgb Conc. 32.2 g/dL (32.0-36.0); Mean Corpuscular Volume 85.1 fL (80.0-100.0); Monocytes # (auto) 0.5 10 ^3/uL (0-1.3); Monocytes % (auto) 5.9 % (0.0-12.0); Neutrophils # (auto) 6.3 10 ^3/uL (1.6-8.6); Neutrophils % (auto) 68.7 % (37.0-80.0); Red Blood Cells 3.46 10^6/uL (4.0-5.20); Red Cell Distribution Width 14.8 % (11.8-14.3); White Blood Cell 9.1 10^3/uL (4.4-10.8)
[2022-06-03 05:25] LABS: Calcium 8.4 mg/dL (8.5-10.1); Potassium 4.1 mmol/L (3.5-5.1)
[2022-06-03] MEDS: FREE WATER GT SCH ×4 (06:04→18:00)
[2022-06-03] MEDS: ACETYLCYSTEINE 20%(200MG/ML) SOL 4ML NEB SCH ×3 (06:14→22:29)
[2022-06-03] MEDS: [UNRECOGNIZED DRUG - MIXTURE] GT SCH ×3 (08:13→18:00)
[2022-06-03] MEDS: diphenhdrAMINE HCL 50 MG/1 ML VL IV PRN ×3 (09:27→23:27)
[2022-06-03] MEDS: PROMETHAZINE HCL 25 MG/ML 1ML IV PRN ×3 (09:27→23:27)
[2022-06-03] MEDS: MORPHINE SULFATE INJ 2 MG/ml SYRG IV PRN ×3 (09:27→23:27)
[2022-06-03] MEDS: SERTRALINE HCL 50 MG TAB PO SCH (09:28)
[2022-06-03] MEDS: METOPROLOL TARTRATE 25 MG TAB PO SCH ×2 (09:28→22:00)
[2022-06-03] MEDS: ENOXAPARIN SOD 40 MG/0.4 ML SYRINGE SC SCH (09:28)
[2022-06-03] MEDS: PANTOPRAZOLE 40 MG/10 ML VIAL INJ IV SCH (09:28)
[2022-06-03] MEDS: RILUZOLE 50 MG PO SCH ×2 (09:29→21:50)
[2022-06-03] MEDS: DOCUSATE ORAL LIQUID 100 MG/10 ML UD GT SCH ×2 (09:29→21:50)
[2022-06-03] MEDS: NUEDEXTA 20-10 MG CAPSULE PO SCH ×2 (09:29→21:50)
[2022-06-03] MEDS: [UNRECOGNIZED DRUG - OTHER] GT SCH ×2 (09:29→21:50)
[2022-06-04] VITALS (34 sets, daily range): BP systolic 86–154; BP diastolic 37–77
[2022-06-04] MEDS: IPRATROPIUM BROM 0.5 MG/2.5ML INH SOL NEB SCH ×6 (02:25→23:14)
[2022-06-04] MEDS: ALBUTEROL SULF 2.5 MG/0.5ML(0.5%) NEB SOLN NEB SCH ×6 (02:25→23:14)
[2022-06-04] MEDS: ACETYLCYSTEINE 20%(200MG/ML) SOL 4ML NEB SCH ×3 (05:59→23:15)
[2022-06-04] MEDS: FREE WATER GT SCH ×5 (06:10→23:54)
[2022-06-04] MEDS: MORPHINE SULFATE INJ 2 MG/ml SYRG IV PRN ×3 (07:09→20:12)
[2022-06-04] MEDS: PROMETHAZINE HCL 25 MG/ML 1ML IV PRN ×3 (07:09→20:12)
[2022-06-04] MEDS: diphenhdrAMINE HCL 50 MG/1 ML VL IV PRN ×3 (07:09→20:12)
[2022-06-04] MEDS: [UNRECOGNIZED DRUG - MIXTURE] GT SCH ×3 (08:22→18:00)
[2022-06-04] MEDS: PANTOPRAZOLE 40 MG/10 ML VIAL INJ IV SCH (08:43)
[2022-06-04] MEDS: ENOXAPARIN SOD 40 MG/0.4 ML SYRINGE SC SCH (08:44)
[2022-06-04] MEDS: METOPROLOL TARTRATE 25 MG TAB PO SCH ×2 (08:44→22:00)
[2022-06-04] MEDS: SERTRALINE HCL 50 MG TAB PO SCH (08:44)
[2022-06-04] MEDS: [UNRECOGNIZED DRUG - OTHER] GT SCH ×2 (08:44→22:23)
[2022-06-04] MEDS: NUEDEXTA 20-10 MG CAPSULE PO SCH ×2 (08:44→22:23)
[2022-06-04] MEDS: RILUZOLE 50 MG PO SCH ×2 (08:44→22:23)
[2022-06-04] MEDS: DOCUSATE ORAL LIQUID 100 MG/10 ML UD GT SCH ×2 (08:45→22:23)
[2022-06-05] VITALS (37 sets, daily range): BP systolic 104–152; BP diastolic 33–80
[2022-06-05] MEDS: ALBUTEROL SULF 2.5 MG/0.5ML(0.5%) NEB SOLN NEB SCH ×6 (02:30→22:58)
[2022-06-05] MEDS: IPRATROPIUM BROM 0.5 MG/2.5ML INH SOL NEB SCH ×6 (02:31→22:58)
[2022-06-05] MEDS: MORPHINE SULFATE INJ 2 MG/ml SYRG IV PRN ×4 (03:57→21:41)
[2022-06-05] MEDS: diphenhdrAMINE HCL 50 MG/1 ML VL IV PRN ×4 (03:58→21:42)
[2022-06-05] MEDS: PROMETHAZINE HCL 25 MG/ML 1ML IV PRN ×3 (03:58→16:05)
[2022-06-05] MEDS: FREE WATER GT SCH ×3 (05:56→16:05)
[2022-06-05] MEDS: ACETYLCYSTEINE 20%(200MG/ML) SOL 4ML NEB SCH (06:09)
[2022-06-05] MEDS: [UNRECOGNIZED DRUG - MIXTURE] GT SCH ×3 (07:15→16:05)
[2022-06-05] MEDS: ENOXAPARIN SOD 40 MG/0.4 ML SYRINGE SC SCH (08:58)
[2022-06-05] MEDS: PANTOPRAZOLE 40 MG/10 ML VIAL INJ IV SCH (08:59)
[2022-06-05] MEDS: NUEDEXTA 20-10 MG CAPSULE PO SCH ×2 (09:01→21:36)
[2022-06-05] MEDS: [UNRECOGNIZED DRUG - OTHER] GT SCH ×2 (09:01→21:36)
[2022-06-05] MEDS: SERTRALINE HCL 50 MG TAB PO SCH (09:01)
[2022-06-05] MEDS: RILUZOLE 50 MG PO SCH ×2 (09:01→21:36)
[2022-06-05] MEDS: DOCUSATE ORAL LIQUID 100 MG/10 ML UD GT SCH ×2 (09:02→21:35)
[2022-06-05] MEDS: METOPROLOL TARTRATE 25 MG TAB PO SCH ×2 (09:06→22:00)
[2022-06-06] VITALS (36 sets, daily range): BP systolic 98–149; BP diastolic 26–83
[2022-06-06] MEDS: PROMETHAZINE HCL 25 MG/ML 1ML IV PRN ×3 (00:31→21:21)
[2022-06-06] MEDS: FREE WATER GT SCH ×4 (00:38→17:10)
[2022-06-06] MEDS: IPRATROPIUM BROM 0.5 MG/2.5ML INH SOL NEB SCH ×6 (02:08→21:55)
[2022-06-06] MEDS: ALBUTEROL SULF 2.5 MG/0.5ML(0.5%) NEB SOLN NEB SCH ×6 (02:08→21:55)
[2022-06-06] MEDS: diphenhdrAMINE HCL 50 MG/1 ML VL IV PRN ×4 (05:09→21:21)
[2022-06-06] MEDS: MORPHINE SULFATE INJ 2 MG/ml SYRG IV PRN ×4 (05:10→21:22)
[2022-06-06] MEDS: [UNRECOGNIZED DRUG - MIXTURE] GT SCH ×3 (07:59→17:11)
[2022-06-06] MEDS: ENOXAPARIN SOD 40 MG/0.4 ML SYRINGE SC SCH (08:52)
[2022-06-06] MEDS: SERTRALINE HCL 50 MG TAB PO SCH (08:52)
[2022-06-06] MEDS: PANTOPRAZOLE 40 MG/10 ML VIAL INJ IV SCH (08:52)
[2022-06-06] MEDS: RILUZOLE 50 MG PO SCH ×2 (08:53→22:00)
[2022-06-06] MEDS: DOCUSATE ORAL LIQUID 100 MG/10 ML UD GT SCH ×2 (08:53→22:00)
[2022-06-06] MEDS: NUEDEXTA 20-10 MG CAPSULE PO SCH ×2 (08:53→22:00)
[2022-06-06] MEDS: [UNRECOGNIZED DRUG - OTHER] GT SCH ×2 (08:53→22:00)
[2022-06-06] MEDS: METOPROLOL TARTRATE 25 MG TAB PO SCH ×2 (08:54→22:00)
[2022-06-07] VITALS (29 sets, daily range): BP systolic 94–170; BP diastolic 46–92
[2022-06-07] MEDS: IPRATROPIUM BROM 0.5 MG/2.5ML INH SOL NEB SCH ×6 (02:00→22:15)
[2022-06-07] MEDS: ALBUTEROL SULF 2.5 MG/0.5ML(0.5%) NEB SOLN NEB SCH ×6 (02:00→22:16)
[2022-06-07] MEDS: diphenhdrAMINE HCL 50 MG/1 ML VL IV PRN ×3 (02:57→21:00)
[2022-06-07] MEDS: MORPHINE SULFATE INJ 2 MG/ml SYRG IV PRN ×4 (03:08→22:47)
[2022-06-07] MEDS: FREE WATER GT SCH ×4 (06:29→18:00)
[2022-06-07] MEDS: [UNRECOGNIZED DRUG - MIXTURE] GT SCH ×3 (08:00→18:00)
[2022-06-07] MEDS: PROMETHAZINE HCL 25 MG/ML 1ML IV PRN ×3 (08:25→22:45)
[2022-06-07] MEDS: RILUZOLE 50 MG PO SCH ×2 (10:07→22:15)
[2022-06-07] MEDS: PANTOPRAZOLE 40 MG/10 ML VIAL INJ IV SCH (10:07)
[2022-06-07] MEDS: METOPROLOL TARTRATE 25 MG TAB PO SCH (10:07)
[2022-06-07] MEDS: NUEDEXTA 20-10 MG CAPSULE PO SCH ×2 (10:07→22:15)
[2022-06-07] MEDS: SERTRALINE HCL 50 MG TAB PO SCH (10:08)
[2022-06-07] MEDS: [UNRECOGNIZED DRUG - OTHER] GT SCH ×2 (10:08→22:09)
[2022-06-07] MEDS: DOCUSATE ORAL LIQUID 100 MG/10 ML UD GT SCH ×2 (10:08→22:00)
[2022-06-07] MEDS: ENOXAPARIN SOD 40 MG/0.4 ML SYRINGE SC SCH (10:08)
[2022-06-08 00:10] VITALS: BP 128/60
[2022-06-08] MEDS: ALBUTEROL SULF 2.5 MG/0.5ML(0.5%) NEB SOLN NEB SCH (02:02)
[2022-06-08] MEDS: IPRATROPIUM BROM 0.5 MG/2.5ML INH SOL NEB SCH (02:03)
[2022-06-08 02:50] VITALS: BP 120/58
[2022-06-08] MEDS: MORPHINE SULFATE INJ 2 MG/ml SYRG IV PRN (02:50)
[2022-06-08] MEDS: PROMETHAZINE HCL 25 MG/ML 1ML IV PRN (02:50)
[2022-06-08] MEDS: diphenhdrAMINE HCL 50 MG/1 ML VL IV PRN (02:50)
== END 2022-06-08 03:02 | DRG 4 ==
LOC: EDBD 13:30 → ER 13:30 → TELE 20:49 → ICU WEST 23:55 → DOU IN ICU 06-01 15:46
PROVIDERS: ADMIT Family Medicine; ATTEND Internal Medicine
PROC: 5A1955Z Respiratory Ventilation, Greater than 96 Consecutive Hours (ICD-10-PCS; principal; 2022-04-21)
PROC: 0BH17EZ Insertion of Endotracheal Airway into Trachea, Via Natural or Artificial Opening (ICD-10-PCS; 2022-04-21)
PROC: 5A12012 Performance of Cardiac Output, Single, Manual (ICD-10-PCS; 2022-04-21)
PROC: 0B968ZZ Drainage of Right Lower Lobe Bronchus, Via Natural or Artificial Opening Endoscopic (ICD-10-PCS; 2022-04-26)
PROC: 0H9U3ZX Drainage of Left Breast, Percutaneous Approach, Diagnostic (ICD-10-PCS; 2022-04-27)
PROC: 0B110F4 Bypass Trachea to Cutaneous with Tracheostomy Device, Open Approach (ICD-10-PCS; 2022-04-29)
PROC: 0B978ZZ Drainage of Left Main Bronchus, Via Natural or Artificial Opening Endoscopic (ICD-10-PCS; 2022-05-21)
DX: A41.9 Sepsis, unspecified organism (principal); R65.21 Severe sepsis with septic shock; J69.0 Pneumonitis due to inhalation of food and vomit; I46.9 Cardiac arrest, cause unspecified; K72.00 Acute and subacute hepatic failure without coma; J15.1 Pneumonia due to Pseudomonas; J96.22 Acute and chronic respiratory failure with hypercapnia; J96.21 Acute and chronic respiratory failure with hypoxia; J98.11 Atelectasis; I42.2 Other hypertrophic cardiomyopathy; J98.19 Other pulmonary collapse; Z99.11 Dependence on respirator [ventilator] status; G12.21 Amyotrophic lateral sclerosis; J90 Pleural effusion, not elsewhere classified; I42.1 Obstructive hypertrophic cardiomyopathy; Z20.822 Contact with and (suspected) exposure to COVID-19; E11.65 Type 2 diabetes mellitus with hyperglycemia; D64.9 Anemia, unspecified; K80.20 Calculus of gallbladder without cholecystitis without obstruction; R31.29 Other microscopic hematuria; Z92.21 Personal history of antineoplastic chemotherapy; Z85.3 Personal history of malignant neoplasm of breast; Z74.01 Bed confinement status; Z88.8 Allergy status to other drugs, medicaments and biological substances
CPT/HCPCS: 36415; 36600; 70450; 71045; 71275; 76642; 76705; 76942; 80048; 80053; 80202; 81001; 82805; 82962; 83036; 83605; 83735; 83880; 84100; 84443; 84484; 85007; 85025; 85027; 85610; 85730; 87040; 87070; 87077; 87081; 87086; 87186; 87205; 93005; 93306; 93970; 94002; 94003; 94640; 94660; 94667; 94668; 96360; 97110; 97530; A4605; C9113; G0378; J0171; J1100; J1642; J1815; J1956; J2001; J2185; J2250; J2405; J2543; J2704; J3480; J7060

== ENCOUNTER 2022-09-18 23:28 | Inpatient (IN) | payer OTHER, MEDICARE ==
[~2022-09-18] VITALS: Ht 172.7 cm; Wt 77.0 kg
[~2022-09-18 23:28] MED LIST: DEXT20CA PO; RILU50TA2 OR
[2022-09-18] MEDS ORDERED: NOREPINEPHRINE 8 MG/250ML KIT 250 ML IV ONE (23:39)
[2022-09-18 23:40] VITALS: BP 128/85
[2022-09-19] VITALS (8 sets, daily range): BP systolic 103–150; BP diastolic 53–93
[2022-09-19] MEDS ORDERED: LACTATED RINGER'S 2,300 ML IV ONE (01:15)
[2022-09-19] MEDS ORDERED: NOREPINEPHRINE 8 MG/250ML KIT 250 ML IV SCH (01:15)
[2022-09-19] MEDS ORDERED: VANCOMYCIN PER PHARMACY 1,000 MG IV SCH (01:15)
[2022-09-19 01:34] LABS: Basophils # (auto) 0.1 10 ^3/uL (0-0.2); Basophils % (auto) 0.3 % (0.0-2.0); Eosinophils # (auto) 0.1 10 ^3/uL (0-0.8); Eosinophils % (auto) 0.3 % (0.0-7.0); Hematocrit 32.8 % (36.0-46.0); Hemoglobin 10.2 g/dL (12.2-16.2); Lymphocytes # (auto) 6.2 10 ^3/uL (0.4-5.4); Lymphocytes % (auto) 22.2 % (10.0-50.0); Mean Corpuscular Hemoglobin 27.3 pg (28.0-32.0); Mean Corpuscular Volume 87.9 fL (80.0-100.0); Monocytes # (auto) 0.7 10 ^3/uL (0-1.3); Monocytes % (auto) 2.4 % (0.0-12.0); Neutrophils # (auto) 20.7 10 ^3/uL (1.6-8.6); Neutrophils % (auto) 74.8 % (37.0-80.0); Nucleated Red Blood Cells % 0.1 %; Red Blood Cells 3.73 10^6/uL (4.0-5.20); Red Cell Distribution Width 14.9 % (11.8-14.3); White Blood Cell 27.7 10^3/uL (4.4-10.8)
[2022-09-19 01:38] LABS: Lactic Acid w/Reflex 14.1 mmol/L (0.4-2.0)
[2022-09-19] MEDS ORDERED: VANCOMYCIN 1GM/250ML 250 ML IV ONE (01:45)
[2022-09-19 01:51] LABS: Albumin 1.8 g/dL (3.4-5.0); BUN/Creatinine Ratio 27.9; Calcium 10.7 mg/dL (8.5-10.1); Potassium 4.6 mmol/L (3.5-5.1)
[2022-09-19 01:54] LABS: Bilirubin, Total 0.2 mg/dL (0.2-1.0); Total Protein 4.5 g/dL (6.4-8.2)
[2022-09-19 03:39] LABS: Urine Bacteria FEW /hpf (None Seen); Urine Blood 1+ /uL (Negative); Urine WBC 54 /hpf (0 - 5)
[2022-09-19 04:24] LABS: Lactic Acid w/Reflex 9.2 mmol/L (0.4-2.0)
[2022-09-19] MEDS ORDERED: NITROGLYCERIN 0.4 MG SL TAB SL PRN (04:30)
[2022-09-19] MEDS ORDERED: LACTATED RINGER'S 1,000 ML IV ONE (04:30)
[2022-09-19] MEDS ORDERED: SODIUM CHLORIDE 0.9% 1,000 ML IV SCH (04:30)
[2022-09-19] MEDS ORDERED: DOCUSATE SOD 100 MG CAP PO PRN (04:30)
[2022-09-19] MEDS ORDERED: ONDANSETRON HCL 4 MG/2 ML VIAL IV PRN (04:30)
[2022-09-19] MEDS ORDERED: IBUPROFEN 100MG/5ML ORAL SUSP 100 MG/5 ML UD GT PRN (04:30)
[2022-09-19] MEDS ORDERED: DEXTROSE (50%) 50ML SYRG IV PRN (04:30)
[2022-09-19] MEDS ORDERED: MORPHINE SULFATE INJ 2 MG/ml SYRG IV PRN (04:30)
[2022-09-19] MEDS ORDERED: hydrALAZINE HCL 20 MG/ML VL IV PRN (05:00)
[2022-09-19] MEDS: ALBUMIN 25% 100 ML IV SCH ×2 (05:03→12:30)
[2022-09-19 05:21] LABS: INR 1.38 (0.9-1.15); Partial Thromboplastin Time 37.3 sec (24.6-33.4)
[2022-09-19 05:38] LABS: Hemoglobin 14.3 g/dL (12.2-16.2)
[2022-09-19 05:44] LABS: Hematocrit 44.4 % (36.0-46.0); Mean Corpuscular Hemoglobin 27.3 pg (28.0-32.0); Mean Corpuscular Hgb Conc. 32.2 g/dL (32.0-36.0); Mean Corpuscular Volume 84.7 fL (80.0-100.0); Red Blood Cells 5.24 10^6/uL (4.0-5.20); Red Cell Distribution Width 14.9 % (11.8-14.3)
[2022-09-19] MEDS ORDERED: HEPARIN DRIP/D5W 100UNITS/ML 250 ML IV SCH (05:45)
[2022-09-19 06:03] LABS: Basophils % (manual) 0 (0.0-2.0); Blast Cells 0; Eosinophils % (manual) 0 (0-7); Metamyelocytes % 0; Myelocytes % 0; Promyelocytes % 0; Reactive Lymphocytes 0; White Blood Cell 43.7 10^3/uL (4.4-10.8)
[2022-09-19] MEDS: HYDROCORTISONE SOD SUCC 100 MG/2ML INJ VIAL IV SCH ×3 (06:32→18:34)
[2022-09-19] MEDS: PIPERACILLIN-TAZOB 3.375GM 100 ML IV SCH ×3 (06:32→18:34)
[2022-09-19] MEDS: ACCU-CHEK COMFORT CURVE STRIP VI SCH ×3 (06:50→18:34)
[2022-09-19] MEDS: InsuLIN REG 1unit/0.01ml Soln (100units/ml) SC SCH ×3 (06:51→18:34)
[2022-09-19 06:54] LABS: Albumin 3.2 g/dL (3.4-5.0); BUN/Creatinine Ratio 31.9; Calcium 10.1 mg/dL (8.5-10.1); Potassium 4.4 mmol/L (3.5-5.1)
[2022-09-19 07:03] LABS: Bilirubin, Total 0.5 mg/dL (0.2-1.0); Total Protein 7.5 g/dL (6.4-8.2)
[2022-09-19 08:28] LABS: Band Neutrophils % (manual) 7; Lymphocytes % (manual) 5 (10.0-50.0); Monocytes % (manual) 4 (0-12)
[2022-09-19 09:19] LABS: INR 1.25 (0.9-1.15); Partial Thromboplastin Time 25.2 sec (24.6-33.4)
[2022-09-19] MEDS ORDERED: MULTIPLE VITAMIN TAB GT SCH (10:00)
[2022-09-19] MEDS ORDERED: HEPARIN SODIUM (PORCINE) 5000 UNITS/ML 1ML VIAL SC SCH (10:00)
[2022-09-19] MEDS ORDERED: ZINC SULFATE 220mg CAP or TAB GT SCH (10:00)
[2022-09-19] MEDS ORDERED: ASCORBIC ACID 500 MG TAB GT SCH (10:00)
[2022-09-19] MEDS ORDERED: AZITHROMYCIN 500MG/ 250ML 250 ML IV SCH (10:00)
[2022-09-19] MEDS ORDERED: ENOXAPARIN SOD 40 MG/0.4 ML SYRINGE SC SCH (10:00)
[2022-09-19] MEDS ORDERED: VANCOMYCIN 1GM/250ML 250 ML IV SCH (17:00)
[2022-09-19] MEDS ORDERED: SODIUM BICARBONATE 8.4% INJ 50ML SYRINGE IV ONE (18:39)
[2022-09-19] MEDS ORDERED: EPINEPHrine HCL 1 MG/10 ML SYRG IV ONE (18:39)
[2022-09-19] MEDS ORDERED: CALCIUM CHLOR(10%) 100MG/ML 10ML SYRINGE IV ONE (18:39)
== END 2022-09-19 18:40 | DRG 871 ==
LOC: ER 23:28 → EDBD 23:28 → TELE 09-19 04:44
PROVIDERS: ADMIT Nurse Practitioner Family; ATTEND Nurse Practitioner Family
PROC: 5A1935Z Respiratory Ventilation, Less than 24 Consecutive Hours (ICD-10-PCS; principal; 2022-09-19)
PROC: 0BH17EZ Insertion of Endotracheal Airway into Trachea, Via Natural or Artificial Opening (ICD-10-PCS; 2022-09-19)
PROC: 5A12012 Performance of Cardiac Output, Single, Manual (ICD-10-PCS; 2022-09-19)
DX: A41.9 Sepsis, unspecified organism (principal); G93.41 Metabolic encephalopathy; I21.4 Non-ST elevation (NSTEMI) myocardial infarction; J18.9 Pneumonia, unspecified organism; J96.20 Acute and chronic respiratory failure, unspecified whether with hypoxia or hypercapnia; E87.4 Mixed disorder of acid-base balance; G12.21 Amyotrophic lateral sclerosis; G93.1 Anoxic brain damage, not elsewhere classified; N39.0 Urinary tract infection, site not specified; Z99.11 Dependence on respirator [ventilator] status; Z66 Do not resuscitate; Z20.822 Contact with and (suspected) exposure to COVID-19; I49.9 Cardiac arrhythmia, unspecified; E11.9 Type 2 diabetes mellitus without complications; I46.9 Cardiac arrest, cause unspecified; R13.10 Dysphagia, unspecified; Z74.01 Bed confinement status; Z82.49 Family history of ischemic heart disease and other diseases of the circulatory system; Z83.3 Family history of diabetes mellitus; Z85.3 Personal history of malignant neoplasm of breast; Z93.0 Tracheostomy status
CPT/HCPCS: 36415; 36600; 70450; 71045; 80053; 81001; 82553; 82805; 82962; 83605; 84484; 85007; 85025; 85027; 85379; 85610; 85730; 87040; 87070; 87077; 87186; 87205; 92950; 93005; 94002; 94003; 96361; 96365; 96367; 99291; G0378; J1815; J2543; P9047